=== PATIENT | male | born 1975 | race Caucasian/White ===

== ENCOUNTER 2019-07-15 10:36 | Inpatient (IN) ==
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
[2019-07-15] MEDS ORDERED: Isovue-370 500 ML BOTTLE IVP ONE (11:14)
[2019-07-15] MEDS ORDERED: *HR* HYDROmorphone (PF) 1 MG/ML SYRINGE IVP ONE ×3 (11:21→15:39)
[2019-07-15 12:07] LABS: Bilirubin,Urine Negative (Negative); Blood,Urine Trace (Negative); Clarity,Urine Turbid (Clear); Color,Urine Yellow (Yellow); Glucose,Urine (UA) Normal (Normal); Ketones,Urine Negative (Negative); Leukocyte Esterase,Urine Large (Negative); Nitrite,Urine Positive (Negative); Protein,Urine 30 mg/dL (Neg-Trace); Specific Gravity,Urine 1.018 (1.010-1.025); Urobilinogen,Urine Normal (Normal)
[2019-07-15 12:09] LABS: Bacteria,Urine Many per hpf (None-Few); Hyaline Casts,Urine None Seen per lpf (None-Few); Squamous Epithelial Cell,Urine Many per lpf (None-Few); WBC,Urine TNTC per hpf (0-3)
[2019-07-15 12:37] LABS: Basophils % 0.5 %; Eosinophils # 0.2 K/mcL (0.0-0.6); Hematocrit 39.8 % (37.5-50.1); Hemoglobin 12.2 g/dL (12.9-16.9); Immature Granulocytes % 0.3 % (0-4); Lymphocytes # 1.1 K/mcL (0.6-4.6); Lymphocytes % 14.7 %; Mean Corpuscular HGB Conc 30.7 g/dL (31.6-35.5); Mean Corpuscular Hemoglobin 28.4 pg (28.0-33.3); Mean Corpuscular Volume 92.8 fL (83.0-100.0); Mean Platelet Volume 9.1 fL (9.4-12.4); Monocytes # 0.3 K/mcL (0.0-1.3); Monocytes % 4.3 %; Platelet Count 272 K/mcL (140-400); Red Blood Count 4.29 M/mcL (4.19-5.50); Red Cell Distribution Width 17.2 % (11.5-14.5); Segmented Neutrophils % 78.2 %; White Blood Count 7.6 K/mcL (4.3-11.1)
[2019-07-15] MEDS ORDERED: 0.9 % Sodium Chloride 1,000 ML IVC ONE (12:39)
[2019-07-15] MEDS ORDERED: Piperacillin/Tazobactam 3.375 GM in 0.9 % Sodium Chloride Mini Bag 100 ML IVPB ONE (12:39)
[2019-07-15 12:56] LABS: Alanine Aminotransferase 11 Units/L (7-52); Albumin 3.4 g/dL (3.5-5.7); Albumin/Globulin Ratio 0.6 (1.1-2.2); Alkaline Phosphatase 102 Units/L (34-104); Aspartate Amino Transferase 11 Units/L (13-39); BUN/Creatinine Ratio 33 (6-26); Bilirubin,Total 0.4 mg/dL (0.3-1.0); Blood Urea Nitrogen 13 mg/dL (6-20); C-Reactive Protein 46 mg/L (Less than 10); Calcium 9.2 mg/dL (8.6-10.3); Carbon Dioxide 28 mEq/L (23-29); Chloride 101 mEq/L (98-107); Globulin 5.4 g/dL (2.4-3.5); Glucose 100 mg/dL (70-105); Osmolality,Calculated 282 (280-300); Sodium 136 mEq/L (136-145); Total Protein 8.8 g/dL (6.4-8.9); eGFR For African Americans > 60 (> 60); eGFR For Non-African Americans > 60 (> 60)
[2019-07-15] MEDS ORDERED: Naloxone 0.4 MG/ML INJ IVP PRN (16:04)
[2019-07-15] MEDS ORDERED: Ondansetron 4 MG/2 ML VIAL IVP PRN (16:04)
--- NOTE | 2019-07-15 16:26 | Emergency Department Note ---
Disposition Clinical Impression: Osteomyelitis Qualifiers: Osteomyelitis type: unspecified type Osteomyelitis location: other site Qualified Code(s): M86.9 - Osteomyelitis, unspecified Urinary tract infection Qualifiers: Urinary tract infection type: site unspecified Hematuria presence: without hematuria Qualified Code(s): N39.0 - Urinary tract infection, site not specified Disposition: Admitted As Inpatient Condition: Good Time of Disposition: 14:51 General Adult HPI - General Chief complaint: ED Extremity Injury, Lower Stated complaint: Rt Hip Pain Fall Friday Time Seen by Provider: 07/15/19 10:40 Source: patient, EMS Limitations: no limitations Nursing Notes Reviewed: Yes Vital Signs Reviewed: Yes - History of Present Illness Pain Scale: 9 - Related Data Home Medications Medication Instructions Recorded Confirmed ALPRAZolam [Xanax 0.5 MG Tablet] 0.5 mg PO BID 09/07/18 07/15/19 Ascorbate Calcium [Vitamin C] 500 mg PO DAILY 09/07/18 07/15/19 Baclofen [Lioresal] 20 mg PO TID 09/07/18 07/15/19 Budesonide Neb [Pulmicort Neb] 0.5 mg IH BIDR 09/07/18 07/15/19 Cetirizine HCl [24Hour Allergy] 10 mg PO DAILY 09/07/18 07/15/19 Dicyclomine Hcl [Bentyl] 20 mg PO TID 09/07/18 07/15/19 Ferrous Sulfate [Iron] 325 mg PO DAILY 09/07/18 07/15/19 Gabapentin [Neurontin] 600 mg PO TID 09/07/18 07/15/19 Ibuprofen [Motrin] 600 mg PO TID PRN 09/07/18 07/15/19 Ipratropium/Albuterol Neb [Duoneb] 3 ml IH Q4HR PRN 09/07/18 07/15/19 Lactobacillus Acidophilus 1 each PO BID 09/07/18 07/15/19 [Acidophilus] Lactulose 30 gm PO DAILY PRN 09/07/18 07/15/19 Linaclotide [Linzess] 145 mcg PO DAILY 09/07/18 07/15/19 Midodrine HCl 10 mg PO TID 09/07/18 07/15/19 Multivit,Th Iron,Other Min 1 each PO DAILY 09/07/18 07/15/19 [Thera-M] Omeprazole [PriLOSEC] 40 mg PO DAILY 09/07/18 07/15/19 OxyCODONE Immed Rel [Roxicodone 10 10 mg PO Q6H 09/07/18 07/15/19 MG] Oxybutynin Chloride [Ditropan Xl] 15 mg PO BID 09/07/18 07/15/19 Polyethylene Glycol 3350 [MiraLAX] 17 gm PO BID 09/07/18 07/15/19 Potassium Chloride [K-Tab ER] 20 meq PO DAILY 09/07/18 07/15/19 Sennosides [Senna] 2 tab PO DAILY 09/07/18 07/15/19 Simethicone [Gas-X] 80 mg PO QID PRN 09/07/18 07/15/19 Sucralfate [Carafate] 1 gm PO BID 09/07/18 07/15/19 Zinc Sulfate 220 mg PO DAILY 09/07/18 07/15/19 Methocarbamol [Robaxin] 500 mg PO Q8HR 04/14/19 07/15/19 OxyCODONE Immed Rel [Roxicodone 30 30 mg PO Q6H 04/14/19 07/15/19 MG] Allergies Allergy/AdvReac Type Severity Reaction Status Date / Time No Known Allergies Allergy Verified 07/15/19 11:02 Cardiovascular: Reports: chest pain Respiratory: Reports: dyspnea Integumentary: Reports: lesions (Decubital ulcers, right) Past Medical History - Past Medical History Medical history: Reports: atrial fibrillation, COPD, DVT, GERD, pulmonary embolus, other Surgical history: Reports: cholecystectomy, colostomy, tracheostomy, other (PEG tube, nephrostomy tube) Psychiatric history: Reports: anxiety, depression - Social History Smoking Status: Current every day smoker Smokeless Tobacco Status: No Alcohol use: Reports: none Drug use: Reports: none Physical Exam - General Limitations: no limitations General appearance: alert, in no apparent distress Course Vital Signs Temperature 98.8 F 07/15/19 10:58 Pulse Rate 91 07/15/19 10:58 Respiratory Rate 16 07/15/19 10:58 Blood Pressure 120/82 07/15/19 10:58 O2 Sat by Pulse Oximetry 97 07/15/19 10:58 Temperature 98.8 F 07/15/19 10:58 Pulse Rate 73 07/15/19 14:19 Respiratory Rate 18 07/15/19 14:19 Blood Pressure 122/75 07/15/19 14:19 O2 Sat by Pulse Oximetry 97 07/15/19 14:19 Oxygen Delivery Oxygen Delivery Nasal Cannula Medical Decision Making - Medical Records Medical records reviewed: Yes I reviewed the patient's medical records. - Lab Data Lab results reviewed: Yes I reviewed the patient's lab results. Result diagrams: 07/15/19 12:16 07/15/19 12:16 Lab Results 07/15/19 07/15/19 07/15/19 Range/Units 11:55 12:16 12:16 WBC 7.6 (4.3-11.1) K/mcL RBC 4.29 (4.19-5.50) M/mcL Hgb 12.2 L (12.9-16.9) g/dL Hct 39.8 (37.5-50.1) % MCV 92.8 (83.0-100.0) fL MCH 28.4 (28.0-33.3) pg MCHC 30.7 L (31.6-35.5) g/dL RDW 17.2 H (11.5-14.5) % Plt Count 272 (140-400) K/mcL MPV 9.1 L (9.4-12.4) fL Immature Gran % 0.3 (0-4) % Seg Neutrophils % 78.2 % Lymphocytes % 14.7 % Monocytes % 4.3 % Eosinophils % 2.0 % Basophils % 0.5 % Neutrophils # 6.0 (1.6-8.9) K/mcL Lymphocytes # 1.1 (0.6-4.6) K/mcL Monocytes # 0.3 (0.0-1.3) K/mcL Eosinophils # 0.2 (0.0-0.6) K/mcL Basophils # 0.0 (0.0-0.2) K/mcL ESR (0-10) mm/hr Sodium 136 (136-145) mEq/L Potassium 4.0 (3.5-5.1) mEq/L Chloride 101 (98-107) mEq/L Carbon Dioxide 28 (23-29) mEq/L BUN 13 (6-20) mg/dL Creatinine 0.40 L (0.70-1.30) mg/dL Est GFR ( Amer) > 60 (> 60) Est GFR (Non-Af Amer) > 60 (> 60) BUN/Creatinine Ratio 33 H (6-26) Glucose 100 (70-105) mg/dL Calculated Osmolality 282 (280-300) Lactic Acid (0.5-2.2) mmol/L Calcium 9.2 (8.6-10.3) mg/dL Total Bilirubin 0.4 (0.3-1.0) mg/dL AST 11 L (13-39) Units/L ALT 11 (7-52) Units/L Alkaline Phosphatase 102 (34-104) Units/L C-Reactive Protein 46 H (Less than 10) mg/L Serum Total Protein 8.8 (6.4-8.9) g/dL Albumin 3.4 L (3.5-5.7) g/dL Globulin 5.4 H (2.4-3.5) g/dL Albumin/Globulin Ratio 0.6 L (1.1-2.2) Urine Color Yellow (Yellow) Urine Clarity Turbid A (Clear) Urine pH 8.0 (5.0-8.0) pH Units Ur Specific [place] 1.018 (1.010-1.025) Urine Protein 30 H (Neg-Trace) mg/dL Urine Glucose (UA) Normal (Normal) mg/dL Urine Ketones Negative (Negative) mg/dL Urine Blood Trace H (Negative) Urine Nitrite Positive A (Negative) Urine Bilirubin Negative (Negative) Urine Urobilinogen Normal (Normal) mg/dL Ur Leukocyte Esterase Large H (Negative) Urine Microscopic RBC 5-15 H (0-3) per hpf Urine Microscopic WBC TNTC H (0-3) per hpf Ur Squamous Epith Cells Many H (None-Few) per lpf Urine Bacteria Many H (None-Few) per hpf Hyaline Casts None Seen (None-Few) per lpf Ur Culture Indicated? YES A (NO) 07/15/19 07/15/19 Range/Units 12:16 12:16 WBC (4.3-11.1) K/mcL RBC (4.19-5.50) M/mcL Hgb (12.9-16.9) g/dL Hct (37.5-50.1) % MCV (83.0-100.0) fL MCH (28.0-33.3) pg MCHC (31.6-35.5) g/dL RDW (11.5-14.5) % Plt Count (140-400) K/mcL MPV (9.4-12.4) fL Immature Gran % (0-4) % Seg Neutrophils % % Lymphocytes % % Monocytes % % Eosinophils % % Basophils % % Neutrophils # (1.6-8.9) K/mcL Lymphocytes # (0.6-4.6) K/mcL Monocytes # (0.0-1.3) K/mcL Eosinophils # (0.0-0.6) K/mcL Basophils # (0.0-0.2) K/mcL ESR 122 H (0-10) mm/hr Sodium (136-145) mEq/L Potassium (3.5-5.1) mEq/L Chloride (98-107) mEq/L Carbon Dioxide (23-29) mEq/L BUN (6-20) mg/dL Creatinine (0.70-1.30) mg/dL Est GFR ( Amer) (> 60) Est GFR (Non-Af Amer) (> 60) BUN/Creatinine Ratio (6-26) Glucose (70-105) mg/dL Calculated Osmolality (280-300) Lactic Acid 0.7 (0.5-2.2) mmol/L Calcium (8.6-10.3) mg/dL Total Bilirubin (0.3-1.0) mg/dL AST (13-39) Units/L ALT (7-52) Units/L Alkaline Phosphatase (34-104) Units/L C-Reactive Protein (Less than 10) mg/L Serum Total Protein (6.4-8.9) g/dL Albumin (3.5-5.7) g/dL Globulin (2.4-3.5) g/dL Albumin/Globulin Ratio (1.1-2.2) Urine Color (Yellow) Urine Clarity (Clear) Urine pH (5.0-8.0) pH Units Ur Specific [place] (1.010-1.025) Urine Protein (Neg-Trace) mg/dL Urine Glucose (UA) (Normal) mg/dL Urine Ketones (Negative) mg/dL Urine Blood (Negative) Urine Nitrite (Negative) Urine Bilirubin (Negative) Urine Urobilinogen (Normal) mg/dL Ur Leukocyte Esterase (Negative) Urine Microscopic RBC (0-3) per hpf Urine Microscopic WBC (0-3) per hpf Ur Squamous Epith Cells (None-Few) per lpf Urine Bacteria (None-Few) per hpf Hyaline Casts (None-Few) per lpf Ur Culture Indicated? (NO) - Radiology Data Radiology results reviewed: Yes I reviewed the patient's radiology results. Chest X-Ray 07/15/19 12:12 IMPRESSION: 1. No acute cardiopulmonary disease. 2. Stable tracheostomy. D/ / 07/15/2019 12:41:54 Tiny Urbina MD / john Interpreting Provider: Tiny Urbina MD Abdomen/Pelvis CT 07/15/19 13:28 IMPRESSION: Subtle erosive-like change involving the left posterior greater tuberosity with mild periosteal reaction with further thinning of the overlying soft tissues and an associated sinus tract, concerning for osteomyelitis. Further evaluation can be made with MRI. Mildly dilated loops of small bowel in the anterior abdomen with gradual transition to normal caliber bowel. This is favored to represent an ileus rather than a partial small bowel obstruction. The urinary bladder is decompressed by suprapubic catheter, however there is suggestion of circumferential bladder wall thickening. Correlate for cystitis. D/ / 07/15/2019 14:08:39 Jann Howe / john Interpreting Provider: Jann Howe - EKG Data EKG #1 EKG attestation: Yes I reviewed and interpreted this EKG. EKG results narrative: EKG showed sinus tachycardia with ventricular rate of 105. No significant ST segment elevation or depression. No significant change from prior EKG dated 10/27/2018. Critical Care Time Critical Care Time: Yes Total Critical Care Time: 35 Attestation: Critical care performed: Time is exclusive of separately billable procedures. Time includes: direct patient care, patient reassessment, coordination of patient care, interpretation of data (laboratory data, radiology data, and respiratory data), review of patient's medical records, medical consultation and documentation of patient care. Procedures included in critical care time: Procedures excluded from critical care time: Attestation Statement - Attestation Attestation: I, Cheng Estrella MD, personally evaluated this patient and discussed their management with the resident physician. I reviewed the resident's note and agree with the documented findings, medical decision making, and plan of care. I reviewed the residents documentation and agree with the residents assessment and plan of care. I have personally had face to face time with the patient. I personally supervised and was present for the macias/critical portions of the following procedures completed by the resident: EKG interpretation. 43-year-old male with history of quadriplegia and a tracheostomy from the [facility] presents complaining of some right hip pain. Patient states he fell out of bed in several days ago and has had continued pain in the right posterior hip area. He also complains of chest congestion and feels like he needs sectioned. Mild shortness of breath. He denies fever. On examination patient is a well-developed thin male in no acute distress. He is alert and cooperative. No cyanosis or diaphoresis. Breath sounds are clear and equal bilaterally. Heart regular with a mild tachycardia. Abdomen is soft and nontender with normal bowel sounds. Labs reviewed. Chest x-ray negative. CT of the abdomen and pelvis concerning for osteomyelitis of the pelvis. Labs reviewed. UTI present. Blood cultures obtained. IV antibiotics initiated. The hospitalist, Dr. Gamble, was consulted and accepted admission of the patient.
--- NOTE | 2019-07-15 17:15 | Internal Med History&Physical ---
Date of Encounter: 07/15/19 Time of Encounter: 17:00 Internal Medicine - H&P: HPI Chief complaint: Back pain Admitted From: Long-term Nursing Facility Plans for Post Hospital Care: [facility] History of present illness: 43-year-old male with history of quadriplegia and a tracheostomy, colostomy and suprapubic catheter [facility] to [facility] pain and left hip pain. Patient had a chronic decubitus ulcer that [facility] care [facility] takes care of it. As per the patient, his dressing was not changed for a few days and he had a full 2 days ago on his left side. Nursing staff noted discharge coming from his wound associated with worsening back pain. Patient denied fever, chills or night sweats. He has no chest pain, shortness of breath or palpitation. In the ED, patient was afebrile, hemodynamically stable. Blood work was unremarkable except for elevated ESR and CRP. UA was positive urine nitrate, leukocyte esterase, WBC counts, RBCs. Past Med Surg Social Fam HX - Past Medical History Medical history: atrial fibrillation, COPD, DVT, GERD, pulmonary embolus, other Additional medical history: quadriplegia. muscle weakness. fatty liver. dermatitis. constipation. MRSA Psychiatric history: anxiety, depression - Past Surgical History Surgical History: cholecystectomy, colostomy, tracheostomy, other (PEG tube, nephrostomy tube) Additional surgical history: peg tube. nephrostomy. suprpubic catheter. trach. wound debridement - Social History Smoking Status: Current every day smoker Smokeless Tobacco Status: No Alcohol use: none Drug use: none - Additional Family History Additional family history: Reviewed and noncontributory Internal Medicine - H&P: Meds ALPRAZolam [Xanax 0.5 MG Tablet] 0.5 mg PO BID 09/07/18 [History] Ascorbate Calcium [Vitamin C] 500 mg PO DAILY 09/07/18 [History] Baclofen [Lioresal] 20 mg PO TID 09/07/18 [History] Budesonide Neb [Pulmicort Neb] 0.5 mg IH BIDR 09/07/18 [History] Cetirizine HCl [24Hour Allergy] 10 mg PO DAILY 09/07/18 [History] Dicyclomine Hcl [Bentyl] 20 mg PO TID 09/07/18 [History] Ferrous Sulfate [Iron] 325 mg PO DAILY 09/07/18 [History] Ibuprofen [Motrin] 600 mg PO TID PRN 09/07/18 [History] Ipratropium/Albuterol Neb [Duoneb] 3 ml IH Q4HR PRN 09/07/18 [History] Lactobacillus Acidophilus [Acidophilus] 1 each PO BID 09/07/18 [History] Lactulose 30 gm PO DAILY PRN 09/07/18 [History] Midodrine HCl 10 mg PO TID 09/07/18 [History] Multivit,Th Iron,Other Min [Thera-M] 1 each PO DAILY 09/07/18 [History] Omeprazole [PriLOSEC] 40 mg PO DAILY 09/07/18 [History] OxyCODONE Immed Rel [Roxicodone 10 MG] 10 mg PO Q6H 09/07/18 [History] Polyethylene Glycol 3350 [MiraLAX] 17 gm PO BID 09/07/18 [History] Potassium Chloride [K-Tab ER] 20 meq PO DAILY 09/07/18 [History] Sucralfate [Carafate] 1 gm PO BID 09/07/18 [History] Zinc Sulfate 220 mg PO DAILY 09/07/18 [History] Methocarbamol [Robaxin] 500 mg PO Q8HR 04/14/19 [History] OxyCODONE Immed Rel [Roxicodone 30 MG] 30 mg PO Q6H 04/14/19 [History] Amino Acids/Protein Hydrolys [Pro-Stat Awc Liquid] 30 ml PO BID 07/15/19 [History] Dextran 70/Hypromellose [Natural Balance Tears Eye Drop] 1 drop BOTH EYES QID PRN 07/15/19 [History] Gabapentin [Neurontin] 1,200 mg PO TID 07/15/19 [History] Lactulose [Enulose] 20 g PO DAILY 07/15/19 [History] Linaclotide [Linzess] 290 mcg PO DAILY 07/15/19 [History] Magnesium Hydroxide [Milk of Magnesia] 30 ml PO DAILY 07/15/19 [History] Midodrine HCl 10 mg PO DAILY PRN 07/15/19 [History] Oxybutynin Chloride [Oxybutynin Chloride ER] 15 mg PO BID 07/15/19 [History] Oxycodone HCl 10 mg PO Q4H PRN 07/15/19 [History] Sennosides/Docusate Sodium [Senna Plus 8.6-50 mg Tablet] 2 each PO DAILY 07/15/19 [History] Solifenacin Succinate [Vesicare] 5 mg PO DAILY 07/15/19 [History] Allergy/AdvReac Type Severity Reaction Status Date / Time No Known Allergies Allergy Verified 07/15/19 11:02 All Systems PM: A 10-system review of systems was performed and is negative for pertinent find ings except as documented above in the HPI. - Constitutional Vitals: Temp Pulse Resp BP Pulse Ox 98.8 F 76 16 115/97 98 07/15/19 10:58 07/15/19 16:59 07/15/19 16:59 07/15/19 16:59 07/15/19 16:59 Exam: General: Patient is alert, oriented 3. Head: Atraumatic, normal inspection, normocephalic. Eye: EOMI, PERRLA, no scleral icterus noted. ENT: Mucous membranes moist. No odontogenic infection noted. Neck: Tracheal mask were no discharge Respiratory: No respiratory distress, rhonchi, or wheezes noted. Cardiovascular: Regular rate and regular rhythm, GI: Soft, nondistended, normal bowel sounds. Extremities:+malodorous ulcer w/ purulent drainage and cellulitis extending along gluteal cleft on right side, contracted upper extremity, quadriplegic with pulses in all 4 extremities. Neurological: Alert, oriented 3, Psychiatric: normal affect, normal mood. Skin: Dry, intact, warm. Normal color. No rashes. Internal Med - H&P Results - Labs CBC & Chem 7: 07/15/19 12:16 07/15/19 12:16 Labs: Short CBC 07/15/19 Range/Units 12:16 WBC 7.6 (4.3-11.1) K/mcL Hgb 12.2 L (12.9-16.9) g/dL Hct 39.8 (37.5-50.1) % Plt Count 272 (140-400) K/mcL Neutrophils # 6.0 (1.6-8.9) K/mcL BMP 07/15/19 12:16 Sodium 136 Potassium 4.0 Chloride 101 Carbon Dioxide 28 BUN 13 Creatinine 0.40 L Glucose 100 Calcium 9.2 Liver Function 07/15/19 Range/Units 12:16 Total Bilirubin 0.4 (0.3-1.0) mg/dL AST 11 L (13-39) Units/L ALT 11 (7-52) Units/L Alkaline Phosphatase 102 (34-104) Units/L Albumin 3.4 L (3.5-5.7) g/dL Urine 07/15/19 Range/Units 11:55 Urine Color Yellow (Yellow) Urine Clarity Turbid A (Clear) Urine pH 8.0 (5.0-8.0) pH Units Ur Specific [place] 1.018 (1.010-1.025) Urine Protein 30 H (Neg-Trace) mg/dL Urine Glucose (UA) Normal (Normal) mg/dL - EKG Data -: EKG Interpreted by Myself EKG shows normal: sinus rhythm - EKG Data Prior EKG available for review: yes When compared to previous EKG: there is no significant change - Impressions ITS Impressions Chest X-Ray 07/15/19 12:12 IMPRESSION: 1. No acute cardiopulmonary disease. 2. Stable tracheostomy. D/ / 07/15/2019 12:41:54 Tiny Urbina MD / john Interpreting Provider: Tiny Urbina MD Abdomen/Pelvis CT 07/15/19 13:28 IMPRESSION: Subtle erosive-like change involving the left posterior greater tuberosity with mild periosteal reaction with further thinning of the overlying soft tissues and an associated sinus tract, concerning for osteomyelitis. Further evaluation can be made with MRI. Mildly dilated loops of small bowel in the anterior abdomen with gradual transition to normal caliber bowel. This is favored to represent an ileus rather than a partial small bowel obstruction. The urinary bladder is decompressed by suprapubic catheter, however there is suggestion of circumferential bladder wall thickening. Correlate for cystitis. D/ / 07/15/2019 14:08:39 Jann Howe / john Interpreting Provider: Jann Howe - Assessment and Plan (1) Quadriplegia Current Visit: Yes Status: Chronic (2) DVT prophylaxis Current Visit: Yes Status: Acute (3) Suprapubic catheter Current Visit: Yes Status: Chronic (4) Osteomyelitis Current Visit: Yes Status: Acute Qualifiers: Osteomyelitis type: other acute Osteomyelitis location: other site Qualified Code(s): M86.18 - Other acute osteomyelitis, other site (5) Pressure ulcer Current Visit: Yes Status: Acute Qualifiers: Pressure injury location: sacral region Pressure injury stage: stage 4 Qualified Code(s): L89.154 - Pressure ulcer of sacral region, stage 4 - Summary of Assessment and Plan Summary of Assessment and Plan: 43-year-old male with history of whether plasia status post tracheostomy, colostomy, suprapubic catheter, decubitus ulcer who came into the hospital due to wound infection. Sacral OM: Evident on CT scan. MRI pending. He is afebrile, hemodynamically stable. Has no leukocytosis, lactic acid is 0.7. Received vancomycin and Zosyn in the ED. Blood cultures, wound cultures ordered. Placed consult for general surgery for possible debridement and bone biopsy. Consult ID. Previous wound cultures with MRDO. Will wait formal ID recommendation as the patient is not septic appearing. Pain management with scheduled and breakthrough pain. Bacteriuria: UA is positive for LE, UN and WBC. likely a contamination. UCx sent from the ED. Quadriplegia with upper extremity contracture: Continue home medication Chronic constipation: Continue home bowel regimen DVT prophylaxis: Subcutaneous heparin. - Time Spent With Patient Total time spent is greater than 50% in coordination of care (as documented) at patient's floor/unit and/or counseling patient:
[2019-07-15] MEDS ORDERED: Artificial Tears SOLN 15 ML BOTTLE BOTH EYES PRN (17:40)
[2019-07-15] MEDS ORDERED: Ipratropium/Albuterol Neb 3 ML IH PRN (17:40)
[2019-07-15] MEDS: *HR* OxyCODONE Immed Rel 15 MG TABLET PO SCH ×2 (17:45→21:57)
[2019-07-15] MEDS: *HR* Heparin 5,000 UNIT/ML VIAL SQ SCH (17:45)
[2019-07-15] MEDS: 0.9 % Sodium Chloride 1,000 ML IVC SCH (17:46)
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
[2019-07-15] MEDS: Gabapentin 300 MG CAPSULE PO SCH (20:07)
[2019-07-15] MEDS: Sucralfate 1 GM TABLET PO SCH (20:08)
[2019-07-15] MEDS: Baclofen 10 MG TABLET PO SCH (20:08)
[2019-07-15] MEDS: ALPRAZolam 0.5 MG TABLET PO SCH (20:08)
[2019-07-15] MEDS: Budesonide Neb 0.5 MG/2 ML IH SCH (22:02)
[2019-07-16] MEDS: Methocarbamol 500 MG TABLET PO PRN (01:22)
[2019-07-16 04:06] LABS: Basophils % 0.5 %; Eosinophils # 0.1 K/mcL (0.0-0.6); Eosinophils % 1.6 %; Hematocrit 32.5 % (37.5-50.1); Immature Granulocytes % 0.2 % (0-4); Lymphocytes # 1.7 K/mcL (0.6-4.6); Lymphocytes % 29.9 %; Mean Corpuscular HGB Conc 30.8 g/dL (31.6-35.5); Mean Platelet Volume 8.7 fL (9.4-12.4); Monocytes # 0.4 K/mcL (0.0-1.3); Monocytes % 7.1 %; Neutrophils # 3.4 K/mcL (1.6-8.9); Platelet Count 231 K/mcL (140-400); Red Blood Count 3.57 M/mcL (4.19-5.50); Red Cell Distribution Width 16.9 % (11.5-14.5); Segmented Neutrophils % 60.7 %; White Blood Count 5.7 K/mcL (4.3-11.1)
[2019-07-16 04:24] LABS: BUN/Creatinine Ratio 34 (6-26); Blood Urea Nitrogen 10 mg/dL (6-20); Calcium 8.3 mg/dL (8.6-10.3); Carbon Dioxide 25 mEq/L (23-29); Chloride 105 mEq/L (98-107); Glucose 80 mg/dL (70-105); Osmolality,Calculated 280 (280-300); Potassium 3.5 mEq/L (3.5-5.1); Sodium 136 mEq/L (136-145); eGFR For African Americans > 60 (> 60); eGFR For Non-African Americans > 60 (> 60)
[2019-07-16] MEDS: 0.9 % Sodium Chloride 1,000 ML IVC SCH (04:31)
[2019-07-16] MEDS: *HR* OxyCODONE Immed Rel 15 MG TABLET PO SCH ×2 (04:31→10:40)
[2019-07-16] MEDS: *HR* Heparin 5,000 UNIT/ML VIAL SQ SCH ×2 (04:31→16:54)
[2019-07-16] MEDS ORDERED: Ibuprofen 800 MG TABLET PO ONE (04:53)
--- NOTE | 2019-07-16 06:07 | Electrocardiograph Report ---
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
[2019-07-16] MEDS: Sucralfate 1 GM TABLET PO SCH ×2 (08:30→16:55)
[2019-07-16] MEDS: Lactulose Oral Soln 20 GM/30 ML UDC PO SCH ×2 (09:17→09:28)
[2019-07-16] MEDS: Lactobacillus 1 EACH CAP.SPRINK PO SCH (09:17)
[2019-07-16] MEDS: Loratadine 10 MG TABLET PO SCH (09:17)
[2019-07-16] MEDS: MOM Conc 10 ML UD.LIQ PO SCH ×2 (09:18→09:27)
[2019-07-16] MEDS: Baclofen 10 MG TABLET PO SCH ×3 (09:18→21:56)
[2019-07-16] MEDS: Gabapentin 300 MG CAPSULE PO SCH ×3 (09:19→21:56)
[2019-07-16] MEDS: Sennosides/Docusate Sodium TABLET PO SCH (09:19)
[2019-07-16] MEDS: ALPRAZolam 0.5 MG TABLET PO SCH ×3 (09:20→21:56)
[2019-07-16] MEDS: Zinc Sulfate 220 MG CAPSULE PO SCH (09:20)
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
[2019-07-16] MEDS: Budesonide Neb 0.5 MG/2 ML IH SCH ×2 (10:29→19:58)
[2019-07-16] MEDS ORDERED: *HR* OxyCODONE Immed Rel 5 MG TABLET PO SCH (10:36)
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
[2019-07-16] MEDS: *HR* OxyCODONE Immed Rel 5 MG TABLET PO PRN ×2 (12:25→22:24)
--- NOTE | 2019-07-16 13:39 | Internal Med Progress Note ---
Hospitalist Progress Note - Encounter Date of Encounter: 07/16/19 Time of Encounter: 09:30 - Subjective Interval History: Patient was seen this morning, he had an uneventful night. He Is complaining about lower extremity pain and tingling. He denied chest pain, shortness of breath or palpitation. - Exam Vitals: Temp Pulse Resp BP Pulse Ox 97.6 F 66 17 101/63 97 07/16/19 11:47 07/16/19 11:47 07/16/19 11:47 07/16/19 11:47 07/16/19 11:47 Exam: General: Patient is alert, oriented 3. Head: Atraumatic, normal inspection, normocephalic. Eye: EOMI, PERRLA, no scleral icterus noted. ENT: Mucous membranes moist. Neck: Tracheal mask with no discharge Respiratory: No respiratory distress, rhonchi, or wheezes noted. Cardiovascular: Regular rate and regular rhythm, GI: Soft, nondistended, normal bowel sounds. Extremities: Left buttock decubitus ulcer with bone exposure, malodorus. Decubitus ulcers X2 measures around 5*7 cm each with no discharge Neurological: Alert, oriented 3, Psychiatric: normal affect, normal mood. Skin: Dry, intact, warm. Normal color. No rashes. - Assessment and Plan (1) Quadriplegia Current Visit: Yes Status: Chronic (2) DVT prophylaxis Current Visit: Yes Status: Acute (3) Suprapubic catheter Current Visit: Yes Status: Chronic (4) Osteomyelitis Current Visit: Yes Status: Acute (5) Pressure ulcer Current Visit: Yes Status: Acute (6) Severe protein-calorie malnutrition Current Visit: Yes Status: Chronic - Summary of Assessment and Plan Summary of Assessment and Plan: 43-year-old male with history of whether plasia status post tracheostomy, colostomy, suprapubic catheter, decubitus ulcer who came into the hospital due to wound infection. OM: Evident on CT scan at LEFT posterior tuberosity. MRI pending. He is afebrile, hemodynamically stable. Has no leukocytosis, lactic acid is 0.7. Received vancomycin and Zosyn in the ED. Blood cultures, wound cultures pending Spoke to general surgery today and they will proceed with I&D, patient is malnourished and as per Dr. Barraza, patient won't benefit from plastic surgery and flap until his nutrition improves. Consult ID. Previous wound cultures with MRDO. ABx as per ID. Pain management with scheduled and breakthrough pain. Severe protein-calorie malnutrition: consult placed to dietitian, low prealbumin level Bacteriuria: UA is positive for LE, UN and WBC. likely a contamination. UCx sent from the ED. Quadriplegia with upper extremity contracture: Continue home medication Chronic constipation: Continue home bowel regimen DVT prophylaxis: Subcutaneous heparin. - Time Spent with Patient Total time spent is greater than 50% in coordination of care (as documented) at patient's floor/unit and/or counseling patient: Plan of Care Discussed with: patient Internal Medicine: Result - Labs CBC & Chem 7: 07/16/19 03:45 07/16/19 03:45 Labs: Short CBC 07/16/19 Range/Units 03:45 WBC 5.7 (4.3-11.1) K/mcL Hgb 10.0 L D (12.9-16.9) g/dL Hct 32.5 L (37.5-50.1) % Plt Count 231 (140-400) K/mcL Neutrophils # 3.4 (1.6-8.9) K/mcL BMP 07/16/19 03:45 Sodium 136 Potassium 3.5 Chloride 105 Carbon Dioxide 25 BUN 10 Creatinine 0.29 L Glucose 80 Calcium 8.3 L - Impressions Impressions Chest X-Ray 07/15/19 12:12 IMPRESSION: 1. No acute cardiopulmonary disease. 2. Stable tracheostomy. D/ /15/2019 12:41:54 Tiny Urbina MD / john Interpreting Provider: Tiny Urbina MD Abdomen/Pelvis CT 07/15/19 13:28 IMPRESSION: Subtle erosive-like change involving the left posterior greater tuberosity with mild periosteal reaction with further thinning of the overlying soft tissues and an associated sinus tract, concerning for osteomyelitis. Further evaluation can be made with MRI. Mildly dilated loops of small bowel in the anterior abdomen with gradual transition to normal caliber bowel. This is favored to represent an ileus rather than a partial small bowel obstruction. The urinary bladder is decompressed by suprapubic catheter, however there is suggestion of circumferential bladder wall thickening. Correlate for cystitis. D/ / 07/15/2019 14:08:39 Jann Howe / john Interpreting Provider: Jann Howe Consult Discharge Plan - Plan Referrals: NONE,PCP [Primary Care Provider] - (4) Osteomyelitis Qualifiers: Osteomyelitis type: other acute Osteomyelitis location: other site Qualified Code(s): M86.18 - Other acute osteomyelitis, other site (5) Pressure ulcer Qualifiers: Pressure injury location: sacral region Pressure injury stage: stage 4 Qualified Code(s): L89.154 - Pressure ulcer of sacral region, stage 4
[2019-07-16] MEDS ORDERED: Lidocaine -MPF 1% 5 ML AMPUL INFILT ONE (14:37)
--- NOTE | 2019-07-16 14:47 | Acute Care Surgery Event Note ---
Date of Encounter: 07/16/19
--- NOTE | 2019-07-16 14:52 | Acute Care Surg Procedure Note ---
Date of procedure: 07/16/19 Pre-op diagnosis: Decubitus ulcers, osteomyelitis Post-op diagnosis: same Procedure: Sharp debridement right lateral hip. Recommendations, risks, and benefits are reviewed with patient at bedside and he is agreeable to proceed. A [verbal] signed consent is completed. 1420 Timeout was completed with patient and instructor of nursing present. Right patient, location, and procedure confirmed. The right lateral hip is with unmistakable pressure ulcer measuring for approximately 4 cm length by 3 cm with and an oval shape with concentration of eschar in the center. Foul-smelling odor is noted. There is no drainage. #15 blade scalpel was used for Sharp debridement of Right lateral decubitus ulcer. A very small amount of eschar (aprox 0.5 cm diameter) was debrided. There was approximately 1 ml of blood loss. Unfortunately the eschar is too fibrous at thi s time. The procedure concluded. Patient denied any pain or discomfort throughout procedure. Complications: None Findings: eschar Anesthesia: other (po pain medication) Surgeon: Zully Najera (No surgeon present; completed per SHANK RANDER-[employer]) Pathology: none sent
[2019-07-16] MEDS: Gentamicin Oint 15 GM TUBE TP SCH (16:53)
[2019-07-16] MEDS ORDERED: Piperacillin/Tazobactam 3.375 GM in 0.9 % Sodium Chloride Mini Bag 100 ML IVPB SCH (20:00)
[2019-07-17 05:57] LABS: Basophils % 0.6 %; Eosinophils # 0.3 K/mcL (0.0-0.6); Eosinophils % 6.3 %; Hematocrit 33.5 % (37.5-50.1); Hemoglobin 10.2 g/dL (12.9-16.9); Immature Granulocytes % 0.2 % (0-4); Lymphocytes # 1.2 K/mcL (0.6-4.6); Lymphocytes % 22.1 %; Mean Corpuscular HGB Conc 30.4 g/dL (31.6-35.5); Mean Corpuscular Hemoglobin 28.8 pg (28.0-33.3); Mean Corpuscular Volume 94.6 fL (83.0-100.0); Mean Platelet Volume 9.3 fL (9.4-12.4); Monocytes # 0.3 K/mcL (0.0-1.3); Monocytes % 6.5 %; Neutrophils # 3.3 K/mcL (1.6-8.9); Platelet Count 228 K/mcL (140-400); Red Blood Count 3.54 M/mcL (4.19-5.50); Red Cell Distribution Width 16.7 % (11.5-14.5); Segmented Neutrophils % 64.3 %; White Blood Count 5.2 K/mcL (4.3-11.1)
[2019-07-17] MEDS: *HR* Heparin 5,000 UNIT/ML VIAL SQ SCH ×2 (06:04→16:58)
[2019-07-17 06:12] LABS: Magnesium 1.8 mg/dL (1.6-2.6)
[2019-07-17 06:24] LABS: Thyroid Stimulating Hormone 1.616 mcIU/mL (0.340-5.600)
[2019-07-17 06:35] LABS: Folate 9.6 ng/mL (3.0-16.0)
[2019-07-17] MEDS: Gabapentin 300 MG CAPSULE PO SCH ×3 (09:02→22:03)
[2019-07-17] MEDS: Zinc Sulfate 220 MG CAPSULE PO SCH (09:02)
[2019-07-17] MEDS: Baclofen 10 MG TABLET PO SCH ×3 (09:02→22:04)
[2019-07-17] MEDS: Loratadine 10 MG TABLET PO SCH (09:02)
[2019-07-17] MEDS: Lactobacillus 1 EACH CAP.SPRINK PO SCH (09:02)
[2019-07-17] MEDS: ALPRAZolam 0.5 MG TABLET PO SCH ×3 (09:02→22:03)
[2019-07-17] MEDS: MOM Conc 10 ML UD.LIQ PO SCH (09:03)
[2019-07-17] MEDS: Sucralfate 1 GM TABLET PO SCH ×2 (09:03→16:57)
[2019-07-17] MEDS: Sennosides/Docusate Sodium TABLET PO SCH (09:03)
[2019-07-17] MEDS: Lactulose Oral Soln 20 GM/30 ML UDC PO SCH (09:07)
[2019-07-17] MEDS: Budesonide Neb 0.5 MG/2 ML IH SCH ×2 (09:55→19:36)
[2019-07-17] MEDS: *HR* OxyCODONE Immed Rel 5 MG TABLET PO PRN (10:25)
--- NOTE | 2019-07-17 11:50 | Internal Med Progress Note ---
Hospitalist Progress Note - Encounter Date of Encounter: 07/17/19 Time of Encounter: 08:30 - Subjective Interval History: No major events overnight. Patient was seen this a.m. He denied fever, chills or night sweats. He has no nausea, vomiting or abdominal pain. Patient denied chest pain, shortness of breath or palpitation. - Exam Vitals: Temp Pulse Resp BP Pulse Ox 97.9 F 80 16 96/51 100 07/17/19 07:53 07/17/19 07:53 07/17/19 09:58 07/17/19 07:53 07/17/19 09:58 Exam: General: Patient is alert, oriented 3. Head: Atraumatic, normal inspection, normocephalic. Eye: EOMI, PERRLA, no scleral icterus noted. ENT: Mucous membranes moist. Neck: Tracheal mask with no discharge Respiratory: No respiratory distress, rhonchi, or wheezes noted. Cardiovascular: Regular rate and regular rhythm, GI: Soft, nondistended, normal bowel sounds. Extremities: Left buttock decubitus ulcer with bone exposure, malodorus. Decubitus ulcers X2 measures around 5*7 cm each with no discharge Neurological: Alert, oriented 3, Psychiatric: normal affect, normal mood. Skin: Dry, intact, warm. Normal color. No rashes. - Assessment and Plan (1) Quadriplegia Current Visit: Yes Status: Chronic (2) DVT prophylaxis Current Visit: Yes Status: Acute (3) Suprapubic catheter Current Visit: Yes Status: Chronic (4) Osteomyelitis Current Visit: Yes Status: Acute (5) Pressure ulcer Current Visit: Yes Status: Acute (6) Severe protein-calorie malnutrition Current Visit: Yes Status: Chronic - Summary of Assessment and Plan Summary of Assessment and Plan: 43-year-old male with history of whether plasia status post tracheostomy, colostomy, suprapubic catheter, decubitus ulcer who came into the hospital due to wound infection. Acute OM of the left proximal femur/greater trochanter: He is afebrile, hemodynamically stable. Has no leukocytosis. Blood cultures pending, wound cultures growing GPC and GNR. Had bedside I&D by surgery, patient is malnourished and as per Dr. Barraza, patient won't benefit from plastic surgery and flap until his nutrition improves. Consult ID, started on Vanc/Cefepime/Colistin. Previous wound cultures with MRDO. ABx as per ID. Pain management with scheduled and breakthrough pain. Severe protein-calorie malnutrition: consult placed to dietitian, low prealbumin level Bacteriuria: UA is positive for LE, UN and WBC. likely a contamination. UCx sent from the ED. Quadriplegia with upper extremity contracture: Continue home medication Chronic constipation: Continue home bowel regimen DVT prophylaxis: Subcutaneous heparin. Disposition: Inpatient, will benefit from LTAC referral for above comorbdities. I reviewed independently all laboratory workup, pertinent images including x- rays and CT scans. I also reviewed independently and EKGs and my findings are in the body of my assessment and plan. I ordered the laboratory workup and images myself. I discussed finding with patient's, their families, RN's and consultants involved in the care of the patient. - Time Spent with Patient Total time spent is greater than 50% in coordination of care (as documented) at patient's floor/unit and/or counseling patient: Greater than 35 minutes Plan of Care Discussed with: patient Internal Medicine: Result - Labs CBC & Chem 7: 07/17/19 05:07 07/16/19 03:45 Labs: Short CBC 07/17/19 Range/Units 05:07 WBC 5.2 (4.3-11.1) K/mcL Hgb 10.2 L (12.9-16.9) g/dL Hct 33.5 L (37.5-50.1) % Plt Count 228 (140-400) K/mcL Neutrophils # 3.3 (1.6-8.9) K/mcL - Impressions Impressions Lumbar Spine MRI 07/16/19 19:58 IMPRESSION: No MRI evidence of acute osteomyelitis. D/ / Juan Valero MD / Juan Valero MD Interpreting Provider: Juan Valero MD Sacrum/Coccyx MRI 07/16/19 19:58 IMPRESSION: No MRI evidence of acute osteomyelitis. D/ / Juan Valero MD / Juan Valero MD Interpreting Provider: Juan Valero MD Pelvis MRI 07/17/19 11:17 IMPRESSION: Acute osteomyelitis of the left proximal femur/greater trochanter. Bone marrow edema with probable T1 bone marrow replacement at the bilateral posterior acetabula, deep to decubitus ulcers, suspicious for acute osteomyelitis or reactive marrow edema. D/ / 07/17/2019 11:40:04 Jann Howe / shyanne Interpreting Provider: Jann Howe Consult Discharge Plan - Plan Referrals: NONE,PCP [Primary Care Provider] - (4) Osteomyelitis Qualifiers: Osteomyelitis type: other acute Osteomyelitis location: femur Laterality: left Qualified Code(s): M86.152 - Other acute osteomyelitis, left femur (5) Pressure ulcer Qualifiers: Pressure injury location: sacral region Pressure injury stage: stage 4 Qualified Code(s): L89.154 - Pressure ulcer of sacral region, stage 4
[2019-07-17] MEDS ORDERED: Colistin (Colistimethate) 300 MG in 0.9 % Sodium Chloride 50 ML IVPB ONE (13:00)
[2019-07-17] MEDS: Gentamicin Oint 15 GM TUBE TP SCH (14:49)
[2019-07-17] MEDS: Cefepime HCl 2,000 MG in 0.9 % Sodium Chloride Mini Bag 100 ML IVPB SCH (16:58)
[2019-07-17] MEDS: Nicotine 21 MG PATCH.TD24 TD SCH (17:56)
[2019-07-17] MEDS: Methocarbamol 500 MG TABLET PO PRN (23:56)
[2019-07-18] MEDS: Colistin (Colistimethate) 150 MG in 0.9 % Sodium Chloride 50 ML IVPB SCH ×2 (02:31→11:31)
[2019-07-18] MEDS: Cefepime HCl 2,000 MG in 0.9 % Sodium Chloride Mini Bag 100 ML IVPB SCH ×2 (05:12→15:33)
[2019-07-18] MEDS: *HR* Heparin 5,000 UNIT/ML VIAL SQ SCH ×2 (05:16→17:09)
[2019-07-18] MEDS: Budesonide Neb 0.5 MG/2 ML IH SCH ×2 (07:26→22:58)
[2019-07-18 07:56] LABS: Hematocrit 32.3 % (37.5-50.1); Hemoglobin 9.8 g/dL (12.9-16.9); Mean Corpuscular HGB Conc 30.3 g/dL (31.6-35.5); Mean Corpuscular Hemoglobin 28.7 pg (28.0-33.3); Mean Corpuscular Volume 94.4 fL (83.0-100.0); Mean Platelet Volume 9.2 fL (9.4-12.4); Platelet Count 225 K/mcL (140-400); Red Blood Count 3.42 M/mcL (4.19-5.50); Red Cell Distribution Width 16.8 % (11.5-14.5); White Blood Count 5.4 K/mcL (4.3-11.1)
[2019-07-18 08:08] LABS: BUN/Creatinine Ratio 49 (6-26); Blood Urea Nitrogen 23 mg/dL (6-20); Calcium 9.2 mg/dL (8.6-10.3); Carbon Dioxide 34 mEq/L (23-29); Chloride 103 mEq/L (98-107); Glucose 100 mg/dL (70-105); Osmolality,Calculated 292 (280-300); Potassium 3.8 mEq/L (3.5-5.1); Sodium 139 mEq/L (136-145); eGFR For African Americans > 60 (> 60); eGFR For Non-African Americans > 60 (> 60)
[2019-07-18] MEDS ORDERED: 0.9 % Sodium Chloride 250 ML IVC ONE (08:49)
[2019-07-18] MEDS ORDERED: Nicotine 21 MG PATCH.TD24 TD SCH (09:00)
[2019-07-18] MEDS ORDERED: 0.9 % Sodium Chloride 250 ML ONE (09:17)
[2019-07-18] MEDS: Lactobacillus 1 EACH CAP.SPRINK PO SCH (09:21)
[2019-07-18] MEDS: Gabapentin 300 MG CAPSULE PO SCH ×3 (09:21→21:45)
[2019-07-18] MEDS: Sennosides/Docusate Sodium TABLET PO SCH (09:21)
[2019-07-18] MEDS: Sucralfate 1 GM TABLET PO SCH ×2 (09:21→15:33)
[2019-07-18] MEDS: Baclofen 10 MG TABLET PO SCH ×3 (09:21→21:46)
[2019-07-18] MEDS: Lactulose Oral Soln 20 GM/30 ML UDC PO SCH (09:22)
[2019-07-18] MEDS: ALPRAZolam 0.5 MG TABLET PO SCH ×3 (09:22→21:46)
[2019-07-18] MEDS: Zinc Sulfate 220 MG CAPSULE PO SCH (09:22)
[2019-07-18] MEDS: Loratadine 10 MG TABLET PO SCH (09:22)
[2019-07-18] MEDS: Nicotine 21 MG PATCH.TD24 TD SCH (09:22)
[2019-07-18] MEDS: MOM Conc 10 ML UD.LIQ PO SCH (09:22)
--- NOTE | 2019-07-18 09:44 | AcuteCareSurgery Progress Note ---
Date of Encounter: 07/18/19 Time of Encounter: 09:43 - Assessment and Plan (1) Pressure ulcer Current Visit: Yes Status: Acute I am pleased with the bedside dressing changes. Continue with antibiotics. I will contact my colleague Dr. Barlow and ask him to look at the wounds for eventual evaluation through the wound care center. Qualifiers: Pressure injury location: sacral region Pressure injury stage: stage 4 Qualified Code(s): L89.154 - Pressure ulcer of sacral region, stage 4 Subjective Patient reports: other (Patient doing well. Denies any feelings of dizziness) Objective Vital Signs - Last 8 Hours Temp Pulse Resp BP Pulse Ox 07/18/19 07:45 83/53 07/18/19 07:30 97.5 F L 49 18 71/43 100 07/18/19 07:28 18 98 Intake and Output 07/17/19 07/18/19 07/18/19 23:59 07:59 15:59 Intake Total 590 / 1307 Output Total 900 / 2200 750 / 750 Balance -310 / -893 -750 / -750 Intake: IV Fluids 350 / 350 Maxipime 2,000 MG In 0.9 % 100 / 100 Sodium Chloride (Mini-Bag +) 100 ML @ 200 mls/hr IVPB Q12H [facility] Rx#:[id number] Vancocin 1,000 MG In 0.9 % 250 / 250 Sodium Chloride 250 ML @ 166. 667 mls/hr IVPB Q12H [facility]IV[facility] Rx#: [id number] Oral 240 / 957 Output: Catheter 900 / 2200 750 / 750 Other: Meal Dinner Percent of Meal Consumed 100% - Additional Exam Sacral and hip decubitus wounds covered appropriately with Dakin solution dressing. - Labs 07/19/19 01:14 07/19/19 01:14 Diabetes panel 07/18/19 Range/Units 07:35 Sodium 139 (136-145) mEq/L Potassium 3.8 (3.5-5.1) mEq/L Chloride 103 (98-107) mEq/L Carbon Dioxide 34 H (23-29) mEq/L BUN 23 H (6-20) mg/dL Creatinine 0.47 L (0.70-1.30) mg/dL Glucose 100 (70-105) mg/dL Calcium 9.2 (8.6-10.3) mg/dL Calcium panel 07/18/19 Range/Units 07:35 Calcium 9.2 (8.6-10.3) mg/dL Pituitary panel 07/18/19 Range/Units 07:35 Sodium 139 (136-145) mEq/L Potassium 3.8 (3.5-5.1) mEq/L Chloride 103 (98-107) mEq/L Carbon Dioxide 34 H (23-29) mEq/L BUN 23 H (6-20) mg/dL Creatinine 0.47 L (0.70-1.30) mg/dL Glucose 100 (70-105) mg/dL Calcium 9.2 (8.6-10.3) mg/dL Adrenal panel 07/18/19 Range/Units 07:35 Sodium 139 (136-145) mEq/L Potassium 3.8 (3.5-5.1) mEq/L Chloride 103 (98-107) mEq/L Carbon Dioxide 34 H (23-29) mEq/L BUN 23 H (6-20) mg/dL Creatinine 0.47 L (0.70-1.30) mg/dL Glucose 100 (70-105) mg/dL Calcium 9.2 (8.6-10.3) mg/dL Consult Discharge Plan - Plan Referrals: NONE,PCP [Non-Partnered Physician] -
--- NOTE | 2019-07-18 10:19 | Internal Med Progress Note ---
Hospitalist Progress Note - Encounter Date of Encounter: 07/18/19 Time of Encounter: 09:25 - Subjective Interval History: No major events overnight. Patient was seen this a.m. He denied fever, chills or night sweats. He has no nausea, vomiting or abdominal pain. Patient denied chest pain, shortness of breath or palpitation. - Exam Vitals: Temp Pulse Resp BP Pulse Ox 97.5 F L 49 18 83/53 100 07/18/19 07:30 07/18/19 07:30 07/18/19 07:30 07/18/19 07:45 07/18/19 07:30 Exam: General: Patient is alert, oriented 3. Head: Atraumatic, normal inspection, normocephalic. Eye: EOMI, PERRLA, no scleral icterus noted. ENT: Mucous membranes moist. Neck: Tracheal mask with no discharge Respiratory: No respiratory distress, rhonchi, or wheezes noted, suprapubic cathater. Cardiovascular: Regular rate and regular rhythm, GI: Soft, nondistended, normal bowel sounds. Extremities: Wound dressing in the back and left hip. Neurological: Alert, oriented 3, Psychiatric: normal affect, normal mood. Skin: Dry, intact, warm. Normal color. No rashes. - Assessment and Plan (1) Quadriplegia Current Visit: Yes Status: Chronic (2) DVT prophylaxis Current Visit: Yes Status: Acute (3) Suprapubic catheter Current Visit: Yes Status: Chronic (4) Osteomyelitis Current Visit: Yes Status: Acute (5) Pressure ulcer Current Visit: Yes Status: Acute (6) Severe protein-calorie malnutrition Current Visit: Yes Status: Chronic - Summary of Assessment and Plan Summary of Assessment and Plan: 43-year-old male with history of whether plasia status post tracheostomy, colostomy, suprapubic catheter, decubitus ulcer who came into the hospital due to wound infection. Acute OM of the left proximal femur/greater trochanter: He is afebrile, hemodynamically stable. Has no leukocytosis. Blood cultures pending, wound cu ltures growing GPC and GNR. Had bedside I&D by surgery, patient is malnourished and as per Dr. Barraza, patient won't benefit from plastic surgery and flap until his nutrition improves. Consult ID, on Vanc/Cefepime/Colistin day2 . Previous wound cultures with MRDO. ABx as per ID. Pain management with scheduled and breakthrough pain. Severe protein-calorie malnutrition: consult placed to dietitian, low prealbumin level Bacteriuria: UA is positive for LE, UN and WBC. likely a contamination. UCx sent from the ED. Quadriplegia with upper extremity contracture: Continue home medication Chronic constipation: Continue home bowel regimen Tobacco abuse: consulted to quit smoking, On nicotine patch. DVT prophylaxis: Subcutaneous heparin. Disposition: Inpatient, will benefit from LTAC referral for above comorbdities. - Time Spent with Patient Total time spent is greater than 50% in coordination of care (as documented) at patient's floor/unit and/or counseling patient: Plan of Care Discussed with: patient Internal Medicine: Result - Labs CBC & Chem 7: 07/18/19 07:35 07/18/19 07:35 Labs: Short CBC 07/18/19 Range/Units 07:35 WBC 5.4 (4.3-11.1) K/mcL Hgb 9.8 L (12.9-16.9) g/dL Hct 32.3 L (37.5-50.1) % Plt Count 225 (140-400) K/mcL BMP 07/18/19 07:35 Sodium 139 Potassium 3.8 Chloride 103 Carbon Dioxide 34 H BUN 23 H Creatinine 0.47 L Glucose 100 Calcium 9.2 - Impressions Impressions Pelvis MRI 07/17/19 11:17 IMPRESSION: Acute osteomyelitis of the left proximal femur/greater trochanter. Bone marrow edema with probable T1 bone marrow replacement at the bilateral posterior acetabula, deep to decubitus ulcers, suspicious for acute osteomyelitis or reactive marrow edema. D/ / 07/17/2019 11:40:04 Jann Howe / micahrter Interpreting Provider: Jann Howe Consult Discharge Plan - Plan Referrals: NONE,PCP [Non-Partnered Physician] - (4) Osteomyelitis Qualifiers: Osteomyelitis type: other acute Osteomyelitis location: femur Laterality: left Qualified Code(s): M86.152 - Other acute osteomyelitis, left femur (5) Pressure ulcer Qualifiers: Pressure injury location: sacral region Pressure injury stage: stage 4 Qualified Code(s): L89.154 - Pressure ulcer of sacral region, stage 4
[2019-07-18] MEDS: Gentamicin Oint 15 GM TUBE TP SCH (10:52)
[2019-07-18] MEDS: 0.9 % Sodium Chloride 1,000 ML IVC SCH ×2 (11:31→21:48)
[2019-07-18] MEDS ORDERED: Trolamine Salicylate/Aloe Vera 35.4 GM TUBE TP PRN (17:15)
[2019-07-18] MEDS: Methocarbamol 500 MG TABLET PO PRN (23:02)
[2019-07-19] MEDS: Colistin (Colistimethate) 150 MG in 0.9 % Sodium Chloride 50 ML IVPB SCH ×2 (00:53→15:01)
[2019-07-19 01:30] LABS: Hematocrit 34.7 % (37.5-50.1); Hemoglobin 10.2 g/dL (12.9-16.9); Mean Corpuscular HGB Conc 29.4 g/dL (31.6-35.5); Mean Corpuscular Hemoglobin 27.9 pg (28.0-33.3); Mean Corpuscular Volume 95.1 fL (83.0-100.0); Mean Platelet Volume 8.9 fL (9.4-12.4); Platelet Count 206 K/mcL (140-400); Red Blood Count 3.65 M/mcL (4.19-5.50); Red Cell Distribution Width 16.4 % (11.5-14.5); White Blood Count 4.8 K/mcL (4.3-11.1)
[2019-07-19 01:52] LABS: BUN/Creatinine Ratio 39 (6-26); Blood Urea Nitrogen 22 mg/dL (6-20); Calcium 8.7 mg/dL (8.6-10.3); Carbon Dioxide 29 mEq/L (23-29); Chloride 102 mEq/L (98-107); Glucose 90 mg/dL (70-105); Osmolality,Calculated 289 (280-300); Potassium 4.3 mEq/L (3.5-5.1); Sodium 138 mEq/L (136-145); eGFR For African Americans > 60 (> 60); eGFR For Non-African Americans > 60 (> 60)
[2019-07-19] MEDS ORDERED: Water for inj. (sterile) 20 ML IV ONE (03:58)
[2019-07-19] MEDS: Cefepime HCl 2,000 MG in Water for inj. (sterile) 20 ML IVPB SCH ×2 (04:04→16:32)
[2019-07-19] MEDS: *HR* Heparin 5,000 UNIT/ML VIAL SQ SCH ×2 (05:54→18:10)
[2019-07-19] MEDS: Budesonide Neb 0.5 MG/2 ML IH SCH ×2 (07:19→20:22)
[2019-07-19] MEDS: 0.9 % Sodium Chloride 1,000 ML IVC SCH (08:00)
--- NOTE | 2019-07-19 10:09 | AcuteCareSurgery Progress Note ---
Date of Encounter: 07/19/19 Time of Encounter: 09:30 - Assessment and Plan (1) Pressure ulcer Current Visit: Yes Status: Acute Multiple decubitus ulcers of the sacrum, ischial tuberosities, heels, and medial right tibial area. No sharp debridement is required. Continue aggressive pressure-relief with current dressing changes. Surgery will sign off Qualifiers: Pressure injury location: contiguous region involving buttock and hip Pressure injury stage: stage 4 Laterality: unspecified laterality Qualified Code(s): L89.44 - Pressure ulcer of contiguous site of back, buttock and hip, stage 4 Subjective Narrative: The patient is seen and evaluated in his room with his floor nurse. I personally examined the complex decubitus ulcers across both sacral areas in both ischial tuberosities. I also evaluated the pressure decubitus on the medial aspect of the right upper leg. All wounds are being treated appropriately with dressing changes. The periwound tissues are in condition. The patient is on aggressive pressure-relief. No sharp debridement is necessary. Continue current dressing changes. Follow-up wound clinic. Acute care surgery will sign off Objective Vital Signs - Last 8 Hours Temp Pulse Resp BP Pulse Ox 07/19/19 07:20 97.5 F L 64 18 90/51 98 07/19/19 03:18 64 16 105/65 99 Intake and Output 07/18/19 07/19/19 07/19/19 23:59 07:59 15:59 Intake Total 1000 / 1700 Output Total 1300 / 2050 1350 / 1350 Balance -300 / -350 -1350 / -1350 Intake: IV Fluids 1000 / 1700 0.9 % Sodium Chloride 1,000 ML 1000 / 1000 @ 100 mls/hr IVC .Q10H [facility] Rx#: [id number] Output: Catheter 1300 / 2050 1350 / 1350 Suprapubic 1350 / 1350 Other: Meal Dinner Percent of Meal Consumed 100% Blood Glucose* 121 - General physical appearance chronically ill, other (Paraplegic) - Neck Neck exam: no masses, no bruits, trachea midline - Respiratory normal expansion, normal respiratory effort, clear to auscultation - Cardiovascular Cardiovascular exam: Present: RRR, no murmurs/rubs/gallops - Abdomen Abdomen: Present: bowel sounds present, soft, distended - Integumentary other (Multiple decubitus ulcers enumerated in the nursing notes. He has bilateral sacral and bilateral ischial as well as bilateral heel and medial r ight tibial. All areas are granulated. Periwound tissues are in excellent condition. No sharp debridement is necessary.) - Psychiatric oriented to time, oriented to person, oriented to place, speech is normal, memory intact - Labs 07/19/19 01:14 07/19/19 01:14 Diabetes panel 07/19/19 Range/Units 01:14 Sodium 138 (136-145) mEq/L Potassium 4.3 (3.5-5.1) mEq/L Chloride 102 (98-107) mEq/L Carbon Dioxide 29 (23-29) mEq/L BUN 22 H (6-20) mg/dL Creatinine 0.56 L (0.70-1.30) mg/dL Glucose 90 (70-105) mg/dL Calcium 8.7 (8.6-10.3) mg/dL Calcium panel 07/19/19 Range/Units 01:14 Calcium 8.7 (8.6-10.3) mg/dL Pituitary panel 07/19/19 Range/Units 01:14 Sodium 138 (136-145) mEq/L Potassium 4.3 (3.5-5.1) mEq/L Chloride 102 (98-107) mEq/L Carbon Dioxide 29 (23-29) mEq/L BUN 22 H (6-20) mg/dL Creatinine 0.56 L (0.70-1.30) mg/dL Glucose 90 (70-105) mg/dL Calcium 8.7 (8.6-10.3) mg/dL Adrenal panel 07/19/19 Range/Units 01:14 Sodium 138 (136-145) mEq/L Potassium 4.3 (3.5-5.1) mEq/L Chloride 102 (98-107) mEq/L Carbon Dioxide 29 (23-29) mEq/L BUN 22 H (6-20) mg/dL Creatinine 0.56 L (0.70-1.30) mg/dL Glucose 90 (70-105) mg/dL Calcium 8.7 (8.6-10.3) mg/dL Consult Discharge Plan - Plan Referrals: NONE,PCP [Non-Partnered Physician] - ([facility])
[2019-07-19] MEDS: Sucralfate 1 GM TABLET PO SCH ×2 (10:15→16:35)
[2019-07-19] MEDS: Baclofen 10 MG TABLET PO SCH ×3 (10:17→21:52)
[2019-07-19] MEDS: Lactobacillus 1 EACH CAP.SPRINK PO SCH (10:17)
[2019-07-19] MEDS: Zinc Sulfate 220 MG CAPSULE PO SCH (10:17)
[2019-07-19] MEDS: Loratadine 10 MG TABLET PO SCH (10:17)
[2019-07-19] MEDS: Sennosides/Docusate Sodium TABLET PO SCH (10:18)
[2019-07-19] MEDS: ALPRAZolam 0.5 MG TABLET PO SCH ×3 (10:18→21:51)
[2019-07-19] MEDS: Gabapentin 300 MG CAPSULE PO SCH ×3 (10:18→21:52)
[2019-07-19] MEDS: Lactulose Oral Soln 20 GM/30 ML UDC PO SCH (10:18)
[2019-07-19] MEDS: Gentamicin Oint 15 GM TUBE TP SCH (10:18)
[2019-07-19] MEDS: MOM Conc 10 ML UD.LIQ PO SCH (10:18)
[2019-07-19] MEDS: Nicotine 21 MG PATCH.TD24 TD SCH (10:19)
--- NOTE | 2019-07-19 11:15 | Internal Med Progress Note ---
Hospitalist Progress Note - Encounter Date of Encounter: 07/19/19 Time of Encounter: 08:25 - Subjective Interval History: No major events overnight. Patient was seen this a.m. He denied fever, chills or night sweats. He has no nausea, vomiting or abdominal pain. Patient denied chest pain, shortness of breath or palpitation. Patient is a complaining about pain as a pain medication is helping for few hours. - Exam Vitals: Temp Pulse Resp BP Pulse Ox 97.5 F L 64 18 90/51 98 07/19/19 07:20 07/19/19 07:20 07/19/19 07:20 07/19/19 07:20 07/19/19 07:20 Exam: General: Patient is alert, oriented 3. Head: Atraumatic, normal inspection, normocephalic. Eye: EOMI, PERRLA, no scleral icterus noted. ENT: Mucous membranes moist. Neck: Tracheal mask with no discharge Respiratory: No respiratory distress, rhonchi, or wheezes noted, suprapubic cathater. Cardiovascular: Regular rate and regular rhythm, GI: Soft, nondistended, normal bowel sounds. Extremities: Wound dressing in the back and left hip. Upper extremities are contracted, lower extremities Neurological: Alert, oriented 3, Psychiatric: normal affect, normal mood. Skin: Dry, intact, warm. Normal color. No rashes. - Assessment and Plan (1) Osteomyelitis Current Visit: Yes Status: Acute (2) Quadriplegia Current Visit: Yes Status: Chronic (3) DVT prophylaxis Current Visit: Yes Status: Acute (4) Suprapubic catheter Current Visit: Yes Status: Chronic (5) Pressure ulcer Current Visit: Yes Status: Acute (6) Severe protein-calorie malnutrition Current Visit: Yes Status: Chronic - Summary of Assessment and Plan Summary of Assessment and Plan: 43-year-old male with history of whether plasia status post tracheostomy, colostomy, suprapubic catheter, decubitus ulcer who came into the hospital due to wound infection. Acute OM of the left proximal femur/greater trochanter: He is afebrile, hemodynamically stable. Has no leukocytosis. Blood cultures pending, wound cultures growing MDRO,MRSA, Pseudomonas, Proteus, Klebsiella. Had bedside I&D by surgery, no more debridements needed. patient won't benefit from plastic surgery and flap until his nutrition improves. Continue wound care. ID is on board, on Vanc/Cefepime/Colistin day3 . Pain management with scheduled and breakthrough pain. Severe protein-calorie malnutrition: consult placed to dietitian, low prealbumin level. On ensure Bacteriuria: UA is positive for LE, UN and WBC. likely a contamination. UCx sent from the ED. Quadriplegia with upper extremity contracture: Continue home medication Chronic constipation: Continue home bowel regimen Tobacco abuse: consulted to quit smoking, On nicotine patch. DVT prophylaxis: Subcutaneous heparin. Disposition: Inpatient, will benefit from LTAC referral for above comorbdities. - Time Spent with Patient Total time spent is greater than 50% in coordination of care (as documented) at patient's floor/unit and/or counseling patient: Plan of Care Discussed with: patient Internal Medicine: Result - Labs CBC & Chem 7: 07/19/19 01:14 07/19/19 01:14 Labs: Short CBC 07/19/19 Range/Units 01:14 WBC 4.8 (4.3-11.1) K/mcL Hgb 10.2 L (12.9-16.9) g/dL Hct 34.7 L (37.5-50.1) % Plt Count 206 (140-400) K/mcL BMP 07/19/19 01:14 Sodium 138 Potassium 4.3 Chloride 102 Carbon Dioxide 29 BUN 22 H Creatinine 0.56 L Glucose 90 Calcium 8.7 Consult Discharge Plan - Plan Referrals: NONE,PCP [Non-Partnered Physician] - ([facility]) (1) Osteomyelitis Qualifiers: Osteomyelitis type: other acute Osteomyelitis location: femur Laterality: left Qualified Code(s): M86.152 - Other acute osteomyelitis, left femur (5) Pressure ulcer Qualifiers: Pressure injury location: contiguous region involving buttock and hip Pressure injury stage: stage 4 Laterality: unspecified laterality Qualified C ode(s): L89.44 - Pressure ulcer of contiguous site of back, buttock and hip, stage 4
[2019-07-19] MEDS: Cefepime HCl 2,000 MG in 0.9 % Sodium Chloride Mini Bag 100 ML IVPB SCH (12:10)
[2019-07-19] MEDS ORDERED: *HR* OxyCODONE Immed Rel 5 MG TABLET PO PRN (14:43)
--- NOTE | 2019-07-19 14:50 | IR Procedure Note ---
Date of procedure: 07/19/19 Consent Obtained: Verbal consent Timeout: Correct patient and procedure verified, Time out performed, Skin prep completed Local anesthetic: Lidocaine 1% Was there an training and development assistant present: No Estimated blood loss (cc): 0 Complications: None; Tolerated procedure well Indications: Sacral osteomyelitis Procedure Performed: PICC placement Results/Findings (any specimens removed): Right basilic vein 5F DL 42 cm power picc placement Post Procedure Treatment Plan: monitor on floor Specimen: none
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
[2019-07-19] MEDS ORDERED: Methylnaltrexone 12 MG/0.6 ML SYRINGE SQ ONE (16:29)
[2019-07-20] MEDS: Colistin (Colistimethate) 150 MG in 0.9 % Sodium Chloride 50 ML IVPB SCH (01:15)
[2019-07-20] MEDS: Cefepime HCl 2,000 MG in Water for inj. (sterile) 20 ML IVPB SCH (03:33)
[2019-07-20 05:20] LABS: Hematocrit 35.5 % (37.5-50.1); Hemoglobin 10.6 g/dL (12.9-16.9); Mean Corpuscular HGB Conc 29.9 g/dL (31.6-35.5); Mean Corpuscular Hemoglobin 28.6 pg (28.0-33.3); Mean Corpuscular Volume 95.7 fL (83.0-100.0); Mean Platelet Volume 9.3 fL (9.4-12.4); Platelet Count 208 K/mcL (140-400); Red Blood Count 3.71 M/mcL (4.19-5.50); Red Cell Distribution Width 16.6 % (11.5-14.5); White Blood Count 5.8 K/mcL (4.3-11.1)
[2019-07-20 05:39] LABS: BUN/Creatinine Ratio 39 (6-26); Blood Urea Nitrogen 21 mg/dL (6-20); Calcium 9.3 mg/dL (8.6-10.3); Carbon Dioxide 31 mEq/L (23-29); Chloride 102 mEq/L (98-107); Glucose 93 mg/dL (70-105); Osmolality,Calculated 285 (280-300); Potassium 3.9 mEq/L (3.5-5.1); Sodium 136 mEq/L (136-145); eGFR For African Americans > 60 (> 60); eGFR For Non-African Americans > 60 (> 60)
[2019-07-20] MEDS: *HR* Heparin 5,000 UNIT/ML VIAL SQ SCH (06:48)
[2019-07-20] MEDS: Budesonide Neb 0.5 MG/2 ML IH SCH (07:53)
--- NOTE | 2019-07-20 09:08 | Discharge Summary ---
- NOTES TO OUTPATIENT PROVIDER Notes to Outpatient Provider: Patient was admitted for Acute OM of the left proximal femur/greater trochanter with Cx growing MRSA, MDRO,Pseudomonas, Proteus, Klebsiella. General surgery did bedside i&d. ID is started on antibiotics for 6 weeks and follow-up Outpatient next week. He also follow up with wound care and eventually he will require plastic surgery consultation. Follow-up on weekly blood work as per infectious disease. Orders not resulted at time of discharge: Pending orders 07/15/19 12:16 Culture,Blood [BC] Stat 07/16/19 14:28 Culture,Anaerobic [RM] Stat Date of Encounter: 07/20/19 Time of Encounter: 09:20 - Discharge Diagnosis (1) Osteomyelitis Priority: Primary Status: Acute Qualifiers: Osteomyelitis type: other acute Osteomyelitis location: femur Laterality: left Qualified Code(s): M86.152 - Other acute osteomyelitis, left femur (2) Quadriplegia Priority: Secondary Status: Chronic (3) DVT prophylaxis Priority: Secondary Status: Acute (4) Suprapubic catheter Priority: Secondary Status: Chronic (5) Pressure ulcer Priority: Secondary Status: Acute Qualifiers: Pressure injury location: contiguous region involving buttock and hip Pressure injury stage: stage 4 Laterality: unspecified laterality Qualified Code(s): L89.44 - Pressure ulcer of contiguous site of back, buttock and hip, stage 4 (6) Severe protein-calorie malnutrition Priority: Secondary Status: Chronic Hospital course: 43-year-old male with history of whether plasia status post tracheostomy, colostomy, suprapubic catheter, decubitus ulcer who was managed for Acute OM of the left proximal femur/greater trochanter. Patient remained afebrile and hemodynamically stable. wound cultures growing MDRO, MRSA, Pseudomonas, Proteus, Klebsiella. Had bedside I&D by surgery. ID consulted and he was started on Vanc/Cefepime/Colistin. Gen. surgery cleared the patient and patient would be discharged back to [facility] for 6 weeks of IV antibiotics after he got a PICC line placed. He will follow up with wound care and infectious disease as outpatient. Discharge discussed with: patient - Time Spent with Patient Total time spent providing and/or coordinating discharge services: 60 minutes - Discharge Medications Prescriptions: New Cefepime HCl/Dextrose, Iso-Osm [Cefepime 2 gm Injection] 2 gm IV BID 42 Days #84 mls Colistin (Colistimethate Na) [Colistimethate] 150 mg IV BID 42 Days #84 vial Vancomycin [Vancocin] 750 mg IV BID 42 Days #84 vial Trolamine Salicylate/Aloe Vera [Aspercreme 10%] 1 appl TP TID PRN #1 tube PRN Reason: See Comments Miconazole 2% cream [Marce Antifungal] 1 appl TP BID #1 tube Sodium Hypochlorite 0.25% [Dakin's (Half-Strength 0.25%)] 1 appl TP BID #1 bottle Gentamicin Oint [Garamycin] 1 appl TP DAILY #1 tube Collagenase Oint [Santyl] 1 appl TP DAILY #1 tube Continued Zinc Sulfate 220 mg PO DAILY Ascorbate Calcium [Vitamin C] 500 mg PO DAILY Sucralfate [Carafate] 1 gm PO BID Multivit,Th Iron,Other Min [Thera-M] 1 each PO DAILY Budesonide Neb [Pulmicort Neb] 0.5 mg IH BIDR Potassium Chloride [K-Tab ER] 20 meq PO DAILY Omeprazole [PriLOSEC] 40 mg PO DAILY Polyethylene Glycol 3350 [MiraLAX] 17 gm PO BID OxyCODONE Immed Rel [Roxicodone 10 MG] 10 mg PO Q6H Midodrine HCl 10 mg PO TID Lactulose 20 g PO DAILY PRN PRN Reason: Constipation Ipratropium/Albuterol Neb [Duoneb] 3 ml IH Q4HR PRN PRN Reason: Shortness Of Breath Ibuprofen [Motrin] 600 mg PO TID PRN PRN Reason: Pain Ferrous Sulfate [Iron] 325 mg PO BID Dicyclomine Hcl [Bentyl] 20 mg PO TID Cetirizine HCl [24Hour Allergy] 10 mg PO DAILY Baclofen [Lioresal] 20 mg PO TID Lactobacillus Acidophilus [Acidophilus] 1 each PO DAILY ALPRAZolam [Xanax 0.5 MG Tablet] 0.5 mg PO TID Amino Acids/Protein Hydrolys [Pro-Stat Awc Liquid] 30 ml PO BID Dextran 70/Hypromellose [Natural Balance Tears Eye Drop] 1 drop BOTH EYES QID PRN PRN Reason: Dry Eyes Gabapentin [Neurontin] 1,200 mg PO TID Lactulose [Enulose] 20 g PO DAILY Linaclotide [Linzess] 290 mcg PO DAILY Magnesium Hydroxide [Milk of Magnesia] 30 ml PO DAILY Midodrine HCl 10 mg PO DAILY PRN PRN Reason: SBP<100 Oxybutynin Chloride [Oxybutynin Chloride ER] 15 mg PO BID Oxycodone HCl 10 mg PO Q4H PRN PRN Reason: Pain Sennosides/Docusate Sodium [Senna Plus 8.6-50 mg Tablet] 2 each PO DAILY Solifenacin Succinate [Vesicare] 5 mg PO DAILY Methocarbamol [Robaxin] 500 mg PO Q8HR PRN PRN Reason: Muscle Spasm No Action OxyCODONE Immed Rel [Roxicodone 30 MG] 30 mg PO Q6H Home Medications: ALPRAZolam [Xanax 0.5 MG Tablet] 0.5 mg PO TID 09/07/18 [History] Ascorbate Calcium [Vitamin C] 500 mg PO DAILY 09/07/18 [History] Baclofen [Lioresal] 20 mg PO TID 09/07/18 [History] Budesonide Neb [Pulmicort Neb] 0.5 mg IH BIDR 09/07/18 [History] Cetirizine HCl [24Hour Allergy] 10 mg PO DAILY 09/07/18 [History] Dicyclomine Hcl [Bentyl] 20 mg PO TID 09/07/18 [History] Ferrous Sulfate [Iron] 325 mg PO BID 09/07/18 [History] Ibuprofen [Motrin] 600 mg PO TID PRN 09/07/18 [History] Ipratropium/Albuterol Neb [Duoneb] 3 ml IH Q4HR PRN 09/07/18 [History] Lactobacillus Acidophilus [Acidophilus] 1 each PO DAILY 09/07/18 [History] Lactulose 20 g PO DAILY PRN 09/07/18 [History] Midodrine HCl 10 mg PO TID 09/07/18 [History] Multivit,Th Iron,Other Min [Thera-M] 1 each PO DAILY 09/07/18 [History] Omeprazole [PriLOSEC] 40 mg PO DAILY 09/07/18 [History] OxyCODONE Immed Rel [Roxicodone 10 MG] 10 mg PO Q6H 09/07/18 [History] Polyethylene Glycol 3350 [MiraLAX] 17 gm PO BID 09/07/18 [History] Potassium Chloride [K-Tab ER] 20 meq PO DAILY 09/07/18 [History] Sucralfate [Carafate] 1 gm PO BID 09/07/18 [History] Zinc Sulfate 220 mg PO DAILY 09/07/18 [History] Methocarbamol [Robaxin] 500 mg PO Q8HR PRN 04/14/19 [History] OxyCODONE Immed Rel [Roxicodone 30 MG] 30 mg PO Q6H 04/14/19 [History] Amino Acids/Protein Hydrolys [Pro-Stat Awc Liquid] 30 ml PO BID 07/15/19 [History] Dextran 70/Hypromellose [Natural Balance Tears Eye Drop] 1 drop BOTH EYES QID PRN 07/15/19 [History] Gabapentin [Neurontin] 1,200 mg PO TID 07/15/19 [History] Lactulose [Enulose] 20 g PO DAILY 07/15/19 [History] Linaclotide [Linzess] 290 mcg PO DAILY 07/15/19 [History] Magnesium Hydroxide [Milk of Magnesia] 30 ml PO DAILY 07/15/19 [History] Midodrine HCl 10 mg PO DAILY PRN 07/15/19 [History] Oxybutynin Chloride [Oxybutynin Chloride ER] 15 mg PO BID 07/15/19 [History] Oxycodone HCl 10 mg PO Q4H PRN 07/15/19 [History] Sennosides/Docusate Sodium [Senna Plus 8.6-50 mg Tablet] 2 each PO DAILY 07/15/19 [History] Solifenacin Succinate [Vesicare] 5 mg PO DAILY 07/15/19 [History] Cefepime HCl/Dextrose, Iso-Osm [Cefepime 2 gm Injection] 2 gm IV BID 42 Days #84 mls 07/19/19 [Rx] Colistin (Colistimethate Na) [Colistimethate] 150 mg IV BID 42 Days #84 vial 07/19/19 [Rx] Vancomycin [Vancocin] 750 mg IV BID 42 Days #84 vial 07/19/19 [Rx] Collagenase Oint [Santyl] 1 appl TP DAILY #1 tube 07/20/19 [Rx] Gentamicin Oint [Garamycin] 1 appl TP DAILY #1 tube 07/20/19 [Rx] Miconazole 2% cream [Marce Antifungal] 1 appl TP BID #1 tube 07/20/19 [Rx] Sodium Hypochlorite 0.25% [Dakin's (Half-Strength 0.25%)] 1 appl TP BID #1 bottle 07/20/19 [Rx] Trolamine Salicylate/Aloe Vera [Aspercreme 10%] 1 appl TP TID PRN #1 tube 07/20/19 [Rx] Allergies/Adverse Reactions: Allergy/AdvReac Type Severity Reaction Status Date / Time No Known Allergies Allergy Verified 07/15/19 11:02 Date of admission: 07/15/19 16:32 Primary care physician: Judd Bautista MD Consults: 07/15/19 16:07 Consult to Infectious Diseases [CONS] Routine Consulting Provider: Infectious Disease Rhianna Reason for Consult: OM Call Completed: No Consult to Surgery [CONS] Routine Consulting Provider: Surgery Rhianna Surgical Reason for Consult: Sacral OM, Bx? Call Completed: No 07/15/19 16:09 Consult to Wound Care [CONS] Routine Reason for Consult: sacral ulcer Call Completed: No 07/15/19 18:55 Consult to Mat Gauger [CONS] Routine Reason for SW Consult: LTAC d/c and possible longterm IV atb d/t osteomyl itis 07/16/19 11:17 dietary consult [Consult to Nutrition] [CONS] Routine Comment: Consulting Provider: NUTRITION Reason for Dietary Consult: Other Other:: Patient has wounds, malnourished 07/16/19 14:37 Consult to Invasive Line Access Team [CONS] Routine Reason for Consult: Picc Line Insertion Line Type: PICC 07/19/19 13:23 Consult to Interventional Radiology [CONS] Routine Consulting Provider: Radiology Interventional Cols Reason for Consult: PICC line placement, failed attempt by IV team Call Completed: No - Constitutional Vitals: Temp Pulse Resp BP Pulse Ox 97.6 F 84 16 86/51 93 07/20/19 06:47 07/20/19 06:47 07/20/19 07:53 07/20/19 06:47 07/20/19 07:53 Exam: General: Patient is alert, oriented 3. Head: Atraumatic, normal inspection, normocephalic. Eye: EOMI, PERRLA, no scleral icterus noted. ENT: Mucous membranes moist. Neck: Tracheal mask with no discharge Respiratory: No respiratory distress, rhonchi, or wheezes noted, suprapubic cathater. Cardiovascular: Regular rate and regular rhythm, GI: Soft, nondistended, normal bowel sounds. Extremities: Wound dressing in the back and left hip. Upper extremities are contracted, lower extremities. RUE PICC line Neurological: Alert, oriented 3, Psychiatric: normal affect, normal mood. Skin: Dry, intact, warm. Normal color. No rashes. - Patient Status Disposition: Transfer SNF Functional capacity at discharge: bed bound Overall status at discharge: patient is back to baseline - Ambulatory Orders Ambulatory Orders: Basic Metabolic Panel [CHEM] Time Frame: 1 Week, Facility: [facility], Location: Lab Basic Metabolic Panel [CHEM] Time Frame: 07/26/19, Facility: [facility], Location: Lab Basic Metabolic Panel [CHEM] Time Frame: 08/02/19, Facility: [facility], Location: Lab Basic Metabolic Panel [CHEM] Time Frame: 08/09/19, Facility: [facility], Location: Lab Basic Metabolic Panel [CHEM] Time Frame: 08/16/19, Facility: [facility], Location: Lab Basic Metabolic Panel [CHEM] Time Frame: 08/23/19, Facility: [facility], Location: Lab Basic Metabolic Panel [CHEM] Time Frame: 08/30/19, Facility: [facility], Location: Lab C-Reactive Protein [CHEM] Time Frame: 1 Week, Facility: [facility], Location: Lab C-Reactive Protein [CHEM] Time Frame: 07/26/19, Facility: [facility], Location: Lab C-Reactive Protein [CHEM] Time Frame: 08/02/19, Facility: [facility], Location: Lab C-Reactive Protein [CHEM] Time Frame: 08/09/19, Facility: [facility], Location: Lab C-Reactive Protein [CHEM] Time Frame: 08/16/19, Facility: [facility], Location: Lab C-Reactive Protein [CHEM] Time Frame: 08/23/19, Facility: [facility], Location: Lab C-Reactive Protein [CHEM] Time Frame: 08/30/19, Facility: [facility], Location: Lab Complete Blood Count [HEME] Time Frame: 1 Week, Facility: [facility], Location: Lab Complete Blood Count [HEME] Time Frame: 07/26/19, Facility: [facility], Location: Lab Complete Blood Count [HEME] Time Frame: 08/02/19, Facility: [facility], Location: Lab Complete Blood Count [HEME] Time Frame: 08/09/19, Facility: [facility], Location: Lab Complete Blood Count [HEME] Time Frame: 08/16/19, Facility: [facility], Location: Lab Complete Blood Count [HEME] Time Frame: 08/23/19, Facility: [facility], Location: Lab Complete Blood Count [HEME] Time Frame: 08/30/19, Facility: [facility], Location: Lab Erythrocyte Sedimentation Rate [HEME] Time Frame: 1 Week, Facility: [facility], Location: Lab Erythrocyte Sedimentation Rate [HEME] Time Frame: 07/26/19, Facility: [facility], Location: Lab Erythrocyte Sedimentation Rate [HEME] Time Frame: 08/02/19, Facility: [facility], Location: Lab Erythrocyte Sedimentation Rate [HEME] Time Frame: 08/09/19, Facility: [facility], Location: Lab Erythrocyte Sedimentation Rate [HEME] Time Frame: 08/16/19, Facility: [facility], Location: Lab Erythrocyte Sedimentation Rate [HEME] Time Frame: 08/23/19, Facility: [facility], Location: Lab Erythrocyte Sedimentation Rate [HEME] Time Frame: 08/30/19, Facility: [facility], Location: Lab - Discharge Instructions Follow Up With: Corey Barlow MD [Non-Partnered Physician] - 07/27/19 9:00 am (Please follow up as schedule...) Lyla Massey CNP [Advanced Practice Nurse] - 08/05/19 2:00 pm (Please follow up asschedule...) NONE,PCP [Non-Partnered Physician] - (WMP) Forms: ED Satisfaction Letter - Diet and Activity Activity: wear oxygen at all times Diet: low salt diet
--- NOTE | 2019-07-20 09:19 | Physician Discharge Referral ---
ExtendedCare Referral Info Transfer To: SNF Provider in Charge after Transfer: PCP Institutional Level of Care: Skilled - Diagnosis (1) Osteomyelitis Priority: Primary Status: Acute (2) Quadriplegia Priority: Secondary Status: Chronic (3) DVT prophylaxis Priority: Secondary Status: Acute (4) Suprapubic catheter Priority: Secondary Status: Chronic (5) Pressure ulcer Priority: Secondary Status: Acute (6) Severe protein-calorie malnutrition Priority: Secondary Status: Chronic - Transfer Medications Prescriptions: Trolamine Salicylate/Aloe Vera [Aspercreme 10%] 1 appl TP TID PRN #1 tube PRN Reason: See Comments Prescription Printed Miconazole 2% cream [Marce Antifungal] 1 appl TP BID #1 tube Prescription Printed Cefepime HCl/Dextrose, Iso-Osm [Cefepime 2 gm Injection] 2 gm IV BID 42 Days #84 mls Prescription Printed Colistin (Colistimethate Na) [Colistimethate] 150 mg IV BID 42 Days #84 vial Prescription Printed Sodium Hypochlorite 0.25% [Dakin's (Half-Strength 0.25%)] 1 appl TP BID #1 bottle Prescription Printed Gentamicin Oint [Garamycin] 1 appl TP DAILY #1 tube Prescription Printed Collagenase Oint [Santyl] 1 appl TP DAILY #1 tube Prescription Printed Vancomycin [Vancocin] 750 mg IV BID 42 Days #84 vial Prescription Printed Home Medications: ALPRAZolam [Xanax 0.5 MG Tablet] 0.5 mg PO TID 09/07/18 [History] Ascorbate Calcium [Vitamin C] 500 mg PO DAILY 09/07/18 [History] Baclofen [Lioresal] 20 mg PO TID 09/07/18 [History] Budesonide Neb [Pulmicort Neb] 0.5 mg IH BIDR 09/07/18 [History] Cetirizine HCl [24Hour Allergy] 10 mg PO DAILY 09/07/18 [History] Dicyclomine Hcl [Bentyl] 20 mg PO TID 09/07/18 [History] Ferrous Sulfate [Iron] 325 mg PO BID 09/07/18 [History] Ibuprofen [Motrin] 600 mg PO TID PRN 09/07/18 [History] Ipratropium/Albuterol Neb [Duoneb] 3 ml IH Q4HR PRN 09/07/18 [History] Lactobacillus Acidophilus [Acidophilus] 1 each PO DAILY 09/07/18 [History] Lactulose 20 g PO DAILY PRN 09/07/18 [History] Midodrine HCl 10 mg PO TID 09/07/18 [History] Multivit,Th Iron,Other Min [Thera-M] 1 each PO DAILY 09/07/18 [History] Omeprazole [PriLOSEC] 40 mg PO DAILY 09/07/18 [History] OxyCODONE Immed Rel [Roxicodone 10 MG] 10 mg PO Q6H 09/07/18 [History] Polyethylene Glycol 3350 [MiraLAX] 17 gm PO BID 09/07/18 [History] Potassium Chloride [K-Tab ER] 20 meq PO DAILY 09/07/18 [History] Sucralfate [Carafate] 1 gm PO BID 09/07/18 [History] Zinc Sulfate 220 mg PO DAILY 09/07/18 [History] Methocarbamol [Robaxin] 500 mg PO Q8HR PRN 04/14/19 [History] OxyCODONE Immed Rel [Roxicodone 30 MG] 30 mg PO Q6H 04/14/19 [History] Amino Acids/Protein Hydrolys [Pro-Stat Awc Liquid] 30 ml PO BID 07/15/19 [History] Dextran 70/Hypromellose [Natural Balance Tears Eye Drop] 1 drop BOTH EYES QID PRN 07/15/19 [History] Gabapentin [Neurontin] 1,200 mg PO TID 07/15/19 [History] Lactulose [Enulose] 20 g PO DAILY 07/15/19 [History] Linaclotide [Linzess] 290 mcg PO DAILY 07/15/19 [History] Magnesium Hydroxide [Milk of Magnesia] 30 ml PO DAILY 07/15/19 [History] Midodrine HCl 10 mg PO DAILY PRN 07/15/19 [History] Oxybutynin Chloride [Oxybutynin Chloride ER] 15 mg PO BID 07/15/19 [History] Oxycodone HCl 10 mg PO Q4H PRN 07/15/19 [History] Sennosides/Docusate Sodium [Senna Plus 8.6-50 mg Tablet] 2 each PO DAILY 07/15/19 [History] Solifenacin Succinate [Vesicare] 5 mg PO DAILY 07/15/19 [History] Cefepime HCl/Dextrose, Iso-Osm [Cefepime 2 gm Injection] 2 gm IV BID 42 Days #84 mls 07/19/19 [Rx] Colistin (Colistimethate Na) [Colistimethate] 150 mg IV BID 42 Days #84 vial 07/19/19 [Rx] Vancomycin [Vancocin] 750 mg IV BID 42 Days #84 vial 07/19/19 [Rx] Collagenase Oint [Santyl] 1 appl TP DAILY #1 tube 07/20/19 [Rx] Gentamicin Oint [Garamycin] 1 appl TP DAILY #1 tube 07/20/19 [Rx] Miconazole 2% cream [Marce Antifungal] 1 appl TP BID #1 tube 07/20/19 [Rx] Sodium Hypochlorite 0.25% [Dakin's (Half-Strength 0.25%)] 1 appl TP BID #1 bottle 07/20/19 [Rx] Trolamine Salicylate/Aloe Vera [Aspercreme 10%] 1 appl TP TID PRN #1 tube 07/20/19 [Rx] Allergies/Adverse Reactions: Allergy/AdvReac Type Severity Reaction Status Date / Time No Known Allergies Allergy Verified 07/15/19 11:02 - Respiratory Orders Oxygen / L per min (4 l) Smoking Cessation: Smoking cessation has been advised. For more information, call the [place] Tobacco Quit Line at 8-698-HSKT-NOW. - Lab Orders Lab Orders: Other (include drug levels w/frequency) (BMP/CBC/ESR/CRP weekly) - Mobility Orders Bedrest - Rehabiliation Orders Rehab Potential: Fair - Treatments Skin tear care topically daily PRN per policy List/Other: Wound care: Right lateral hip: cleanse and apply gentamicin ointment. Apply santyl nickel thick, cover with saline moistended gauze. cover with ABD. tape to secure Left lateral hip: daily packing with 1/4 strength dakin's solution. cover with ABD - Diet Orders Regular (Ensure TID DAILY) CERTIFICATION: I certify that the transfer of the above named patient to an Extended Care Facility is necessary for the continuing treatment of the diagnosis listed. The above information is true and accurate reflection of patient's current condition. Confidential - Redisclosure prohibited without a patient's written consent.
[2019-07-20] MEDS ORDERED: 0.9 % Sodium Chloride 500 ML IV ONE (09:38)
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
[2019-07-20] MEDS: Sucralfate 1 GM TABLET PO SCH (10:18)
[2019-07-20] MEDS: Zinc Sulfate 220 MG CAPSULE PO SCH (10:18)
[2019-07-20] MEDS: MOM Conc 10 ML UD.LIQ PO SCH (10:18)
[2019-07-20] MEDS: Lactulose Oral Soln 20 GM/30 ML UDC PO SCH (10:18)
[2019-07-20] MEDS: Baclofen 10 MG TABLET PO SCH (10:18)
[2019-07-20] MEDS: Sennosides/Docusate Sodium TABLET PO SCH (10:19)
[2019-07-20] MEDS: ALPRAZolam 0.5 MG TABLET PO SCH (10:19)
[2019-07-20] MEDS: Nicotine 21 MG PATCH.TD24 TD SCH (10:19)
[2019-07-20] MEDS: Lactobacillus 1 EACH CAP.SPRINK PO SCH (10:19)
[2019-07-20] MEDS: Gabapentin 300 MG CAPSULE PO SCH (10:19)
[2019-07-20] MEDS: Loratadine 10 MG TABLET PO SCH (10:19)
[2019-07-20 11:25] VITALS: BP 107/71
[2019-07-20] MEDS: Gentamicin Oint 15 GM TUBE TP SCH (11:45)
[2019-07-20] MEDS ORDERED: Aminoglycoside Consult 1 EACH MC ONE (12:53)
== END 2019-07-20 12:54 | DRG 344 ==
LOC: 2ANU 10:36 → EMEROOARM 10:36 → SUATTDRO 16:32 → 2ANU 17:39
PROVIDERS: ADMIT Internal Medicine; ATTEND Internal Medicine

== ENCOUNTER 2019-07-21 09:01 | Inpatient (IN) ==
[2019-07-21] MEDS ORDERED: 0.9 % Sodium Chloride 1,000 ML IVC ONE ×2 (09:07→09:08)
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
--- NOTE | 2019-07-21 09:27 | Emergency Department Note ---
Disposition Clinical Impression: Osteomyelitis Qualifiers: Osteomyelitis type: unspecified type Osteomyelitis location: femur Laterality: left Qualified Code(s): M86.9 - Osteomyelitis, unspecified Stage 4 decubitus ulcer Qualifiers: Pressure injury location: buttock Laterality: left Qualified Code(s): L89.324 - Pressure ulcer of left buttock, stage 4 Disposition: Admitted As Inpatient Condition: Fair Time of Disposition: 10:35 General Adult HPI - General Chief complaint: ED Nausea/Vomiting/Diarrhea Stated complaint: Numbness and Tingling BLE Time Seen by Provider: 07/21/19 09:01 Source: EMS Limitations: no limitations Nursing Notes Reviewed: Yes Vital Signs Reviewed: Yes - History of Present Illness Pain Scale: 9 - Related Data Home Medications Medication Instructions Recorded Confirmed ALPRAZolam [Xanax 0.5 MG Tablet] 0.5 mg PO TID 09/07/18 07/21/19 Ascorbate Calcium [Vitamin C] 500 mg PO DAILY 09/07/18 07/21/19 Baclofen [Lioresal] 20 mg PO TID 09/07/18 07/21/19 Budesonide Neb [Pulmicort Neb] 0.5 mg IH BIDR 09/07/18 07/21/19 Cetirizine HCl [24Hour Allergy] 10 mg PO DAILY 09/07/18 07/21/19 Dicyclomine Hcl [Bentyl] 20 mg PO TID 09/07/18 07/21/19 Ferrous Sulfate [Iron] 325 mg PO BID 09/07/18 07/21/19 Ibuprofen [Motrin] 600 mg PO TID PRN 09/07/18 07/21/19 Ipratropium/Albuterol Neb [Duoneb] 3 ml IH Q4HR PRN 09/07/18 07/21/19 Lactobacillus Acidophilus 1 each PO DAILY 09/07/18 07/21/19 [Acidophilus] Lactulose 20 g PO DAILY PRN 09/07/18 07/21/19 Midodrine HCl 10 mg PO TID 09/07/18 07/21/19 Multivit,Th Iron,Other Min 1 each PO DAILY 09/07/18 07/21/19 [Thera-M] Omeprazole [PriLOSEC] 40 mg PO DAILY 09/07/18 07/21/19 OxyCODONE Immed Rel [Roxicodone 10 10 mg PO Q6H 09/07/18 07/21/19 MG] Polyethylene Glycol 3350 [MiraLAX] 17 gm PO BID 09/07/18 07/21/19 Potassium Chloride [K-Tab ER] 20 meq PO DAILY 09/07/18 07/21/19 Sucralfate [Carafate] 1 gm PO BID 09/07/18 07/21/19 Zinc Sulfate 220 mg PO DAILY 09/07/18 07/21/19 Methocarbamol [Robaxin] 500 mg PO Q8HR PRN 04/14/19 07/21/19 OxyCODONE Immed Rel [Roxicodone 30 30 mg PO Q6H 04/14/19 07/21/19 MG] Amino Acids/Protein Hydrolys 30 ml PO BID 07/15/19 07/21/19 [Pro-Stat Awc Liquid] Dextran 70/Hypromellose [Natural 1 drop BOTH EYES QID PRN 07/15/19 07/21/19 Balance Tears Eye Drop] Gabapentin [Neurontin] 1,200 mg PO TID 07/15/19 07/21/19 Lactulose [Enulose] 20 g PO DAILY 07/15/19 07/21/19 Linaclotide [Linzess] 290 mcg PO DAILY 07/15/19 07/21/19 Magnesium Hydroxide [Milk of 30 ml PO DAILY 07/15/19 07/21/19 Magnesia] Midodrine HCl 10 mg PO DAILY PRN 07/15/19 07/21/19 Oxybutynin Chloride [Oxybutynin 15 mg PO BID 07/15/19 07/21/19 Chloride ER] Oxycodone HCl 10 mg PO Q4H PRN 07/15/19 07/21/19 Sennosides/Docusate Sodium [Senna 2 each PO DAILY 07/15/19 07/21/19 Plus 8.6-50 mg Tablet] Solifenacin Succinate [Vesicare] 5 mg PO DAILY 07/15/19 07/21/19 Previous Rx's Medication Instructions Recorded Cefepime HCl/Dextrose, Iso-Osm 2 gm IV BID 42 Days #84 mls 07/19/19 [Cefepime 2 gm Injection] Colistin (Colistimethate Na) 150 mg IV BID 42 Days #84 vial 07/19/19 [Colistimethate] Vancomycin [Vancocin] 750 mg IV BID 42 Days #84 vial 07/19/19 Collagenase Oint [Santyl] 1 appl TP DAILY #1 tube 07/20/19 Gentamicin Oint [Garamycin] 1 appl TP DAILY #1 tube 07/20/19 Miconazole 2% cream [Marce 1 appl TP BID #1 tube 07/20/19 Antifungal] Sodium Hypochlorite 0.25% [Dakin's 1 appl TP BID #1 bottle 07/20/19 (Half-Strength 0.25%)] Trolamine Salicylate/Aloe Vera 1 appl TP TID PRN #1 tube 07/20/19 [Aspercreme 10%] Allergies Allergy/AdvReac Type Severity Reaction Status Date / Time No Known Allergies Allergy Verified 07/15/19 11:02 Past Medical History - Past Medical History Medical history: Reports: atrial fibrillation, COPD, DVT, GERD, pulmonary emb olus, other Surgical history: Reports: cholecystectomy, colostomy, tracheostomy, other (PEG tube, nephrostomy tube) Psychiatric history: Reports: anxiety, depression - Social History Smoking Status: Current every day smoker Smokeless Tobacco Status: No Alcohol use: Reports: none Drug use: Reports: none Physical Exam - General Limitations: no limitations General appearance: alert, in no apparent distress Course Vital Signs Temperature 98.2 F 07/21/19 09:02 Pulse Rate 91 07/21/19 09:02 Respiratory Rate 18 07/21/19 09:02 Blood Pressure 73/59 07/21/19 09:02 O2 Sat by Pulse Oximetry 93 07/21/19 09:02 Temperature 98.2 F 07/21/19 09:02 Pulse Rate 69 07/21/19 10:15 Respiratory Rate 20 07/21/19 10:15 Blood Pressure 107/67 07/21/19 10:15 O2 Sat by Pulse Oximetry 99 07/21/19 10:15 Oxygen Delivery Oxygen Delivery Room Air Medical Decision Making - Lab Data Result diagrams: 07/21/19 09:21 07/21/19 09:21 Lab Results 07/21/19 07/21/19 07/21/19 Range/Units 09:21 09:21 09:21 WBC 6.2 (4.3-11.1) K/mcL RBC 4.32 (4.19-5.50) M/mcL Hgb 12.4 L D (12.9-16.9) g/dL Hct 41.4 (37.5-50.1) % MCV 95.8 (83.0-100.0) fL MCH 28.7 (28.0-33.3) pg MCHC 30.0 L (31.6-35.5) g/dL RDW 17.2 H (11.5-14.5) % Plt Count 236 (140-400) K/mcL MPV 9.1 L (9.4-12.4) fL Immature Gran % 0.5 (0-4) % Seg Neutrophils % 77.9 % Lymphocytes % 13.5 % Monocytes % 5.2 % Eosinophils % 2.6 % Basophils % 0.3 % Neutrophils # 4.8 (1.6-8.9) K/mcL Lymphocytes # 0.8 (0.6-4.6) K/mcL Monocytes # 0.3 (0.0-1.3) K/mcL Eosinophils # 0.2 (0.0-0.6) K/mcL Basophils # 0.0 (0.0-0.2) K/mcL Sodium 136 (136-145) mEq/L Potassium 4.4 (3.5-5.1) mEq/L Chloride 101 (98-107) mEq/L Carbon Dioxide 29 (23-29) mEq/L BUN 23 H (6-20) mg/dL Creatinine 0.87 (0.70-1.30) mg/dL Est GFR ( Amer) > 60 (> 60) Est GFR (Non-Af Amer) > 60 (> 60) BUN/Creatinine Ratio 26 (6-26) Glucose 126 H (70-105) mg/dL Calculated Osmolality 287 (280-300) Lactic Acid 1.6 (0.5-2.2) mmol/L Calcium 10.6 H (8.6-10.3) mg/dL Critical Care Time Critical Care Time: No Attestation Statement - Attestation Attestation: For this encounter, I have reviewed the CHECKING CLERK or PA documentation, treatment plan, and medical decision making; and I have had face to face time with this patient. Patient to the ED with a chief complaint of not feeling well. Increased pain and numbness in his left leg. Patient was recently seen and has osteomyelitis in his hip. He was sent back to the [place] [facility] yesterday and he had increased pain and numbness today. On exam he is hypotensive. Multiple open deep wounds to the Botox and sacrum. Serous drainage. Cultures were obtained. Plan. Blood pressure improved with IV hydration. Starting broad-spectrum antibiotics. Admitted to the hospitalist. Normal white count. Afebrile.
[2019-07-21 09:34] LABS: Basophils % 0.3 %; Eosinophils # 0.2 K/mcL (0.0-0.6); Eosinophils % 2.6 %; Hematocrit 41.4 % (37.5-50.1); Immature Granulocytes % 0.5 % (0-4); Lymphocytes # 0.8 K/mcL (0.6-4.6); Lymphocytes % 13.5 %; Mean Corpuscular Hemoglobin 28.7 pg (28.0-33.3); Mean Corpuscular Volume 95.8 fL (83.0-100.0); Mean Platelet Volume 9.1 fL (9.4-12.4); Monocytes # 0.3 K/mcL (0.0-1.3); Monocytes % 5.2 %; Neutrophils # 4.8 K/mcL (1.6-8.9); Platelet Count 236 K/mcL (140-400); Red Blood Count 4.32 M/mcL (4.19-5.50); Red Cell Distribution Width 17.2 % (11.5-14.5); Segmented Neutrophils % 77.9 %; White Blood Count 6.2 K/mcL (4.3-11.1)
[2019-07-21 09:40] LABS: Hemoglobin 12.4 g/dL (12.9-16.9)
[2019-07-21] MEDS ORDERED: Meropenem 1,000 MG in 0.9 % Sodium Chloride Mini Bag 100 ML IVPB ONE (09:51)
[2019-07-21 09:53] LABS: BUN/Creatinine Ratio 26 (6-26); Blood Urea Nitrogen 23 mg/dL (6-20); Calcium 10.6 mg/dL (8.6-10.3); Carbon Dioxide 29 mEq/L (23-29); Chloride 101 mEq/L (98-107); Glucose 126 mg/dL (70-105); Osmolality,Calculated 287 (280-300); Potassium 4.4 mEq/L (3.5-5.1); Sodium 136 mEq/L (136-145); eGFR For African Americans > 60 (> 60); eGFR For Non-African Americans > 60 (> 60)
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
[2019-07-21] MEDS ORDERED: Naloxone 0.4 MG/ML INJ IVP PRN (12:06)
[2019-07-21] MEDS ORDERED: Ondansetron 4 MG/2 ML VIAL IVP PRN (12:06)
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
[2019-07-21] MEDS ORDERED: *HR* OxyCODONE Immed Rel 5 MG TABLET PO PRN (12:33)
[2019-07-21] MEDS ORDERED: Vancomycin 1 EACH in 0.9 % Sodium Chloride 250 ML IVPB PRN (16:00)
[2019-07-21] MEDS ORDERED: Colistin (Colistimethate) 150 MG VIAL IVPB SCH (16:00)
[2019-07-21] MEDS ORDERED: Colistin (Colistimethate) 150 MG in 0.9 % Sodium Chloride 50 ML IVPB SCH (16:00)
[2019-07-21] MEDS ORDERED: Meropenem 1,000 MG in Water for inj. (sterile) 10 ML IVP SCH (18:00)
[2019-07-21] MEDS: *HR* OxyCODONE Immed Rel 15 MG TABLET PO SCH (18:02)
[2019-07-21] MEDS ORDERED: Lactulose 200 GM/300 ML (for enema) RC PRN (21:54)
[2019-07-21] MEDS ORDERED: Trolamine Salicylate/Aloe Vera 35.4 GM TUBE TP PRN (22:36)
[2019-07-21] MEDS ORDERED: Ipratropium/Albuterol Neb 3 ML IH PRN (22:39)
[2019-07-21] MEDS: *HR* Heparin 5,000 UNIT/ML VIAL SQ SCH (22:40)
[2019-07-21] MEDS: Cefepime HCl 2,000 MG in 0.9 % Sodium Chloride Mini Bag 100 ML IVPB SCH (22:41)
[2019-07-21] MEDS: Gabapentin 300 MG CAPSULE PO SCH ×2 (22:44→23:47)
[2019-07-21] MEDS ORDERED: NON-FORMULARY MEDICATION 1 EACH EACH (Oxycodone Immed Rel 10 MG) PO SCH (23:00)
[2019-07-21] MEDS ORDERED: *HR* OxyCODONE Immed Rel 5 MG TABLET PO SCH (23:15)
--- NOTE | 2019-07-22 01:12 | Event Note ---
Date of Encounter: 07/22/19 Time of Encounter: 01:07 There was confusion regarding this pts. home dosing of oxycodone. Original med rec showed 30 mg oxycodone Q6HR OLIVIA plus 10 mg oxycodone Q6HR SSH. In addition, there was an order for 10 mg oxycodone Q4HR PRN. Patient stated that he takes 40 mg oxycodone Q6HR OLIVIA. construction technician spoke with Gali at patient's ECF who stated that the patient is no longer taking 40 mg oxycodone Q6HR OLIVIA. Gali stated that the pt. only takes 10 mg oxycodone immediate release Q4HR PRN for pain. Orders for oxycodone 30 mg and 10 mg OLIVIA cancelled and MAR updated to reflect the pts. current ECF orders.
[2019-07-22 01:24] LABS: Basophils % 0.4 %; Eosinophils # 0.3 K/mcL (0.0-0.6); Eosinophils % 4.8 %; Hematocrit 32.5 % (37.5-50.1); Hemoglobin 9.8 g/dL (12.9-16.9); Immature Granulocytes % 0.4 % (0-4); Lymphocytes # 1.2 K/mcL (0.6-4.6); Mean Corpuscular HGB Conc 30.2 g/dL (31.6-35.5); Mean Corpuscular Hemoglobin 28.7 pg (28.0-33.3); Mean Platelet Volume 9.2 fL (9.4-12.4); Monocytes # 0.4 K/mcL (0.0-1.3); Monocytes % 7.5 %; Neutrophils # 3.7 K/mcL (1.6-8.9); Platelet Count 212 K/mcL (140-400); Red Blood Count 3.42 M/mcL (4.19-5.50); Red Cell Distribution Width 16.6 % (11.5-14.5); Segmented Neutrophils % 65.9 %; White Blood Count 5.6 K/mcL (4.3-11.1)
[2019-07-22 01:43] LABS: BUN/Creatinine Ratio 32 (6-26); Blood Urea Nitrogen 18 mg/dL (6-20); Calcium 9.4 mg/dL (8.6-10.3); Carbon Dioxide 24 mEq/L (23-29); Chloride 102 mEq/L (98-107); Glucose 83 mg/dL (70-105); Osmolality,Calculated 279 (280-300); Potassium 3.4 mEq/L (3.5-5.1); Sodium 134 mEq/L (136-145); eGFR For African Americans > 60 (> 60); eGFR For Non-African Americans > 60 (> 60)
[2019-07-22] MEDS: Gentamicin Oint 15 GM TUBE TP SCH ×2 (03:30→12:06)
[2019-07-22] MEDS: *HR* OxyCODONE Immed Rel 15 MG TABLET PO SCH (04:09)
[2019-07-22] MEDS: *HR* OxyCODONE Immed Rel 5 MG TABLET PO PRN ×3 (04:29→13:17)
[2019-07-22] MEDS: *HR* Heparin 5,000 UNIT/ML VIAL SQ SCH ×3 (04:29→21:15)
[2019-07-22] MEDS: Methocarbamol 500 MG TABLET PO PRN ×2 (04:47→13:17)
[2019-07-22] MEDS ORDERED: Ibuprofen 600 MG TABLET PO ONE (04:54)
--- NOTE | 2019-07-22 08:54 | Internal Med Progress Note ---
Hospitalist Progress Note - Encounter Date of Encounter: 07/22/19 Time of Encounter: 08:53 - Exam Vitals: Temp Pulse Resp BP Pulse Ox 97.4 F L 67 14 121/74 99 07/22/19 07:11 07/22/19 07:11 07/22/19 07:11 07/22/19 07:11 07/22/19 07:11 - Assessment and Plan (1) Osteomyelitis Current Visit: Yes Status: Acute (2) Stage 4 decubitus ulcer Current Visit: Yes Status: Acute (3) Severe protein-calorie malnutrition Current Visit: Yes Status: Acute (4) Chronic pain Current Visit: Yes Status: Acute (5) Hypotension Current Visit: Yes Status: Chronic (6) Quadriplegia Current Visit: Yes Status: Chronic (7) DVT prophylaxis Current Visit: Yes Status: Acute - Time Spent with Patient Total time spent is greater than 50% in coordination of care (as documented) at patient's floor/unit and/or counseling patient: Internal Medicine: Result - Labs CBC & Chem 7: 07/22/19 01:17 07/22/19 01:17 Labs: Short CBC 07/21/19 07/22/19 Range/Units 09:21 01:17 WBC 6.2 5.6 (4.3-11.1) K/mcL Hgb 12.4 L D 9.8 L D (12.9-16.9) g/dL Hct 41.4 32.5 L (37.5-50.1) % Plt Count 236 212 (140-400) K/mcL Neutrophils # 4.8 3.7 (1.6-8.9) K/mcL BMP 07/21/19 07/22/19 09:21 01:17 Sodium 136 134 L Potassium 4.4 3.4 L Chloride 101 102 Carbon Dioxide 29 24 BUN 23 H 18 Creatinine 0.87 0.56 L Glucose 126 H 83 Calcium 10.6 H 9.4 Consult Discharge Plan - Plan Referrals: Judd Bautista MD [Primary Care Provider] - (1) Osteomyelitis Qualifiers: Osteomyelitis type: unspecified type Osteomyelitis location: femur Laterality: left Qualified Code(s): M86.9 - Osteomyelitis, unspecified (2) Stage 4 decubitus ulcer Qualifiers: Pressure injury location: contiguous region involving buttock and hip Laterality: left Qualified Code(s): L89.44 - Pressure ulcer of contiguous site of back, buttock and hip, stage 4 (4) Chronic pain Qualifiers: Chronic pain type: other chronic pain Qualified Code(s): G89.29 - Other chronic pain (5) Hypotension Qualifiers: Hypotension type: unspecified hypotension type Qualified Code(s): I95.9 - Hypotension, unspecified
[2019-07-22] MEDS ORDERED: Lactulose 200 GM, Sodium Chloride IRRigation 700 ML RC PRN (09:00)
[2019-07-22] MEDS: Cefepime HCl 2,000 MG in 0.9 % Sodium Chloride Mini Bag 100 ML IVPB SCH ×2 (09:01→21:26)
[2019-07-22] MEDS: Baclofen 10 MG TABLET PO SCH ×2 (09:02→15:59)
[2019-07-22] MEDS: Sennosides/Docusate Sodium TABLET PO SCH (09:02)
[2019-07-22] MEDS: Gabapentin 300 MG CAPSULE PO SCH (09:02)
[2019-07-22] MEDS: ALPRAZolam 0.5 MG TABLET PO SCH ×2 (09:02→15:59)
[2019-07-22] MEDS: Sucralfate 1 GM TABLET PO SCH ×2 (09:03→21:14)
[2019-07-22] MEDS: Colistin (Colistimethate) 150 MG in 0.9 % Sodium Chloride 50 ML IVPB SCH ×2 (10:43→21:25)
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
[2019-07-22] MEDS ORDERED: *HR* OxyCODONE Immed Rel 5 MG TABLET PO PRN ×2 (13:47→16:25)
--- NOTE | 2019-07-22 14:07 | Discharge Summary ---
Orders not resulted at time of discharge: Pending orders 07/21/19 09:27 Culture,Anaerobic [] Stat Culture,Wound,with Gram Stain [] Stat 07/21/19 10:49 Blood Culture [Culture,Blood] [] Stat Date of Encounter: 07/22/19 Time of Encounter: 13:56 - Discharge Diagnosis (1) Osteomyelitis Status: Acute Qualifiers: Osteomyelitis type: unspecified type Osteomyelitis location: femur Laterality: left Qualified Code(s): M86.9 - Osteomyelitis, unspecified (2) Stage 4 decubitus ulcer Status: Acute Qualifiers: Pressure injury location: contiguous region involving buttock and hip Laterality: left Qualified Code(s): L89.44 - Pressure ulcer of contiguous site of back, buttock and hip, stage 4 (3) Severe protein-calorie malnutrition Status: Acute (4) Chronic pain Status: Acute Qualifiers: Chronic pain type: other chronic pain Qualified Code(s): G89.29 - Other chronic pain (5) Hypotension Status: Chronic Qualifiers: Hypotension type: unspecified hypotension type Qualified Code(s): I95.9 - Hypotension, unspecified (6) Quadriplegia Status: Chronic (7) DVT prophylaxis Status: Acute Hospital course: Mr. Alvarado is a 43 year old male - Time Spent with Patient Total time spent providing and/or coordinating discharge services: - Discharge Medications Prescriptions: No Action Zinc Sulfate 220 mg PO DAILY Sucralfate [Carafate] 1 gm PO BID Multivit,Th Iron,Other Min [Thera-M] 1 tab PO DAILY Budesonide Neb [Pulmicort Neb] 0.5 mg IH BIDR Potassium Chloride [K-Tab ER] 20 meq PO DAILY Polyethylene Glycol 3350 [MiraLAX] 17 gm PO BID Ipratropium/Albuterol Neb [Duoneb] 3 ml IH Q4HR PRN PRN Reason: Shortness Of Breath Ibuprofen [Motrin] 600 mg PO TID PRN PRN Reason: Pain Ferrous Sulfate [Iron] 325 mg PO BID Dicyclomine Hcl [Bentyl] 20 mg PO TID Cetirizine HCl [24Hour Allergy] 10 mg PO DAILY Baclofen [Lioresal] 20 mg PO TID Lactobacillus Acidophilus [Acidophilus] 1 cap PO DAILY ALPRAZolam [Xanax 0.5 MG Tablet] 0.5 mg PO TID Amino Acids/Protein Hydrolys [Pro-Stat Awc Liquid] 30 ml PO BID Dextran 70/Hypromellose [Natural Balance Tears Eye Drop] 1 drop BOTH EYES QID PRN PRN Reason: Dry Eyes Lactulose [Enulose] 20 gm PO DAILY Linaclotide [Linzess] 290 mcg PO DAILY Magnesium Hydroxide [Milk of Magnesia] 2,400 mg PO DAILY Midodrine HCl 10 mg PO DAILY PRN PRN Reason: SBP<100 Oxycodone HCl 10 mg PO Q4H PRN PRN Reason: Pain Sennosides/Docusate Sodium [Senna Plus 8.6-50 mg Tablet] 2 each PO DAILY Solifenacin Succinate [Vesicare] 5 mg PO DAILY Cefepime HCl/Dextrose, Iso-Osm [Cefepime 2 gm Injection] 2 gm IV BID 42 Days #84 mls Colistin (Colistimethate Na) [Colistimethate] 150 mg IV BID 42 Days #84 vial Trolamine Salicylate/Aloe Vera [Aspercreme 10%] 1 appl TP TID PRN #1 tube PRN Reason: See Comments Miconazole 2% cream [Marce Antifungal] 1 appl TP BID #1 tube Sodium Hypochlorite 0.25% [Dakin's (Half-Strength 0.25%)] 1 appl TP BID #1 bottle Gentamicin Oint [Garamycin] 1 appl TP DAILY #1 tube Collagenase Oint [Santyl] 1 appl TP DAILY #1 tube Gabapentin [Neurontin] 1,200 mg PO TID Omeprazole [PriLOSEC] 40 mg PO DAILY Oxybutynin Chloride [Ditropan XL] 15 mg PO BID Vancomycin [Vancocin] 750 mg IV BID Methocarbamol [Robaxin] 500 mg PO Q8HR PRN PRN Reason: Muscle Spasm Home Medications: ALPRAZolam [Xanax 0.5 MG Tablet] 0.5 mg PO TID 09/07/18 [History] Baclofen [Lioresal] 20 mg PO TID 09/07/18 [History] Budesonide Neb [Pulmicort Neb] 0.5 mg IH BIDR 09/07/18 [History] Cetirizine HCl [24Hour Allergy] 10 mg PO DAILY 09/07/18 [History] Dicyclomine Hcl [Bentyl] 20 mg PO TID 09/07/18 [History] Ferrous Sulfate [Iron] 325 mg PO BID 09/07/18 [History] Ibuprofen [Motrin] 600 mg PO TID PRN 09/07/18 [History] Ipratropium/Albuterol Neb [Duoneb] 3 ml IH Q4HR PRN 09/07/18 [History] Lactobacillus Acidophilus [Acidophilus] 1 cap PO DAILY 09/07/18 [History] Multivit,Th Iron,Other Min [Thera-M] 1 tab PO DAILY 09/07/18 [History] Polyethylene Glycol 3350 [MiraLAX] 17 gm PO BID 09/07/18 [History] Potassium Chloride [K-Tab ER] 20 meq PO DAILY 09/07/18 [History] Sucralfate [Carafate] 1 gm PO BID 09/07/18 [History] Zinc Sulfate 220 mg PO DAILY 09/07/18 [History] Methocarbamol [Robaxin] 500 mg PO Q8HR PRN 04/14/19 [History] Amino Acids/Protein Hydrolys [Pro-Stat Awc Liquid] 30 ml PO BID 07/15/19 [History] Dextran 70/Hypromellose [Natural Balance Tears Eye Drop] 1 drop BOTH EYES QID PRN 07/15/19 [History] Lactulose [Enulose] 20 gm PO DAILY 07/15/19 [History] Linaclotide [Linzess] 290 mcg PO DAILY 07/15/19 [History] Magnesium Hydroxide [Milk of Magnesia] 2,400 mg PO DAILY 07/15/19 [History] Midodrine HCl 10 mg PO DAILY PRN 07/15/19 [History] Oxycodone HCl 10 mg PO Q4H PRN 07/15/19 [History] Sennosides/Docusate Sodium [Senna Plus 8.6-50 mg Tablet] 2 each PO DAILY 07/15/19 [History] Solifenacin Succinate [Vesicare] 5 mg PO DAILY 07/15/19 [History] Cefepime HCl/Dextrose, Iso-Osm [Cefepime 2 gm Injection] 2 gm IV BID 42 Days #84 mls 07/19/19 [Rx] Colistin (Colistimethate Na) [Colistimethate] 150 mg IV BID 42 Days #84 vial 07/19/19 [Rx] Collagenase Oint [Santyl] 1 appl TP DAILY #1 tube 07/20/19 [Rx] Gentamicin Oint [Garamycin] 1 appl TP DAILY #1 tube 07/20/19 [Rx] Miconazole 2% cream [Marce Antifungal] 1 appl TP BID #1 tube 07/20/19 [Rx] Sodium Hypochlorite 0.25% [Dakin's (Half-Strength 0.25%)] 1 appl TP BID #1 bottle 07/20/19 [Rx] Trolamine Salicylate/Aloe Vera [Aspercreme 10%] 1 appl TP TID PRN #1 tube 07/20/19 [Rx] Gabapentin [Neurontin] 1,200 mg PO TID 07/22/19 [History] Omeprazole [PriLOSEC] 40 mg PO DAILY 07/22/19 [History] Oxybutynin Chloride [Ditropan XL] 15 mg PO BID 07/22/19 [History] Vancomycin [Vancocin] 750 mg IV BID 07/22/19 [History] Allergies/Adverse Reactions: Allergy/AdvReac Type Severity Reaction Status Date / Time honey Allergy See Verified 07/21/19 23:41 Comments Date of admission: 07/21/19 10:23 Primary care physician: Judd Bautista MD Consults: 07/21/19 09:52 Consult to Infectious Diseases [CONS] Stat Consulting Provider: Infectious Disease Rhianna Reason for Consult: multiresistent bacteria infection in wound, oesteomylitis Call Completed: No 07/21/19 12:46 Consult to Nutrition [CONS] Routine Comment: unable to keep up with bodily demands Consulting Provider: NUTRITION Reason for Dietary Consult: Other Consult to Wound Care [CONS] Routine Reason for Consult: wound on coxxyx Call Completed: No 07/21/19 16:49 Consult to Chemical Plant Technical Director [CONS] Routine Reason for SW Consult: Patient from [place] - Constitutional Vitals: Temp Pulse Resp BP Pulse Ox 97.4 F L 67 16 87/54 99 07/22/19 07:11 07/22/19 10:39 07/22/19 10:39 07/22/19 10:39 07/22/19 10:39 - Patient Status Condition: Fair - Discharge Instructions Follow Up With: Judd Bautista MD [Primary Care Provider] -
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
[2019-07-22] MEDS: 0.9 % Sodium Chloride 1,000 ML IVC SCH (18:25)
[2019-07-22] MEDS: *HR* OxyCODONE ER (12 HR) 10 MG TABLET PO SCH (21:05)
[2019-07-22] MEDS: Gabapentin 400 MG CAPSULE PO SCH (21:14)
[2019-07-22] MEDS ORDERED: Acetaminophen IV 1,000 MG/100 ML INFUS..BTL IVPB ONE (23:19)
[2019-07-23] MEDS: 0.9 % Sodium Chloride 1,000 ML IVC SCH (02:34)
[2019-07-23 03:42] LABS: Basophils % 0.5 %; Eosinophils # 0.3 K/mcL (0.0-0.6); Eosinophils % 5.4 %; Immature Granulocytes % 0.2 % (0-4); Lymphocytes # 0.9 K/mcL (0.6-4.6); Lymphocytes % 16.8 %; Mean Corpuscular HGB Conc 30.3 g/dL (31.6-35.5); Mean Corpuscular Hemoglobin 28.9 pg (28.0-33.3); Mean Corpuscular Volume 95.4 fL (83.0-100.0); Mean Platelet Volume 9.3 fL (9.4-12.4); Monocytes # 0.4 K/mcL (0.0-1.3); Monocytes % 7.9 %; Neutrophils # 3.8 K/mcL (1.6-8.9); Platelet Count 202 K/mcL (140-400); Red Blood Count 3.46 M/mcL (4.19-5.50); Red Cell Distribution Width 16.6 % (11.5-14.5); Segmented Neutrophils % 69.2 %; White Blood Count 5.5 K/mcL (4.3-11.1)
[2019-07-23 04:01] LABS: BUN/Creatinine Ratio 23 (6-26); Blood Urea Nitrogen 15 mg/dL (6-20); Calcium 9.8 mg/dL (8.6-10.3); Carbon Dioxide 24 mEq/L (23-29); Chloride 107 mEq/L (98-107); Glucose 78 mg/dL (70-105); Osmolality,Calculated 282 (280-300); Potassium 4.1 mEq/L (3.5-5.1); Sodium 136 mEq/L (136-145); eGFR For African Americans > 60 (> 60); eGFR For Non-African Americans > 60 (> 60)
[2019-07-23] MEDS: *HR* Heparin 5,000 UNIT/ML VIAL SQ SCH ×3 (04:07→22:47)
[2019-07-23] MEDS: *HR* OxyCODONE ER (12 HR) 10 MG TABLET PO SCH (05:24)
[2019-07-23] MEDS: Sucralfate 1 GM TABLET PO SCH ×2 (09:21→23:46)
[2019-07-23] MEDS: Gabapentin 400 MG CAPSULE PO SCH ×4 (09:22→22:48)
[2019-07-23] MEDS: Sennosides/Docusate Sodium TABLET PO SCH (09:24)
[2019-07-23] MEDS: Colistin (Colistimethate) 150 MG in 0.9 % Sodium Chloride 50 ML IVPB SCH ×2 (10:08→22:53)
[2019-07-23] MEDS: Cefepime HCl 2,000 MG in 0.9 % Sodium Chloride Mini Bag 100 ML IVPB SCH ×2 (10:08→22:49)
[2019-07-23] MEDS ORDERED: *HR* Propofol 200 MG/20 ML VIAL IVP ONE (10:56)
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
[2019-07-23] MEDS ORDERED: Lidocaine -MPF 2% 2 ML VIAL ONE (11:13)
[2019-07-23] MEDS ORDERED: *HR* PHENYLEPHRINE 1,000 MCG/10 ML SYRINGE IVP ONE (11:16)
--- NOTE | 2019-07-23 11:39 | Anesthesia Evaluation PreOp ---
Date of Encounter: 07/23/19 Time of Encounter: 11:37 - Past History Planned Operation: PEG Tube Placement Cardiac History: Denies any Significant Hx Pulmonary History: Smoker (2 years), Other (tracheostomy with supplemental O2--denies vent support) SERVICE DIRECTOR History: Other (spastic quadriplegia) Other Medical History: Hepatic (fatty liver), GERD Anesthesia History: No Prior Anesthetic Complications, Past Anesthesia Alcohol Use: none Drug use: none Medications and Allergies ALPRAZolam [Xanax 0.5 MG Tablet] 0.5 mg PO TID 09/07/18 [History] Baclofen [Lioresal] 20 mg PO TID 09/07/18 [History] Budesonide Neb [Pulmicort Neb] 0.5 mg IH BIDR 09/07/18 [History] Cetirizine HCl [24Hour Allergy] 10 mg PO DAILY 09/07/18 [History] Dicyclomine Hcl [Bentyl] 20 mg PO TID 09/07/18 [History] Ferrous Sulfate [Iron] 325 mg PO BID 09/07/18 [History] Ibuprofen [Motrin] 600 mg PO TID PRN 09/07/18 [History] Ipratropium/Albuterol Neb [Duoneb] 3 ml IH Q4HR PRN 09/07/18 [History] Lactobacillus Acidophilus [Acidophilus] 1 cap PO DAILY 09/07/18 [History] Multivit,Th Iron,Other Min [Thera-M] 1 tab PO DAILY 09/07/18 [History] Polyethylene Glycol 3350 [MiraLAX] 17 gm PO BID 09/07/18 [History] Potassium Chloride [K-Tab ER] 20 meq PO DAILY 09/07/18 [History] Sucralfate [Carafate] 1 gm PO BID 09/07/18 [History] Zinc Sulfate 220 mg PO DAILY 09/07/18 [History] Methocarbamol [Robaxin] 500 mg PO Q8HR PRN 04/14/19 [History] Amino Acids/Protein Hydrolys [Pro-Stat Awc Liquid] 30 ml PO BID 07/15/19 [Histor y] Dextran 70/Hypromellose [Natural Balance Tears Eye Drop] 1 drop BOTH EYES QID PRN 07/15/19 [History] Lactulose [Enulose] 20 gm PO DAILY 07/15/19 [History] Linaclotide [Linzess] 290 mcg PO DAILY 07/15/19 [History] Magnesium Hydroxide [Milk of Magnesia] 2,400 mg PO DAILY 07/15/19 [History] Midodrine HCl 10 mg PO DAILY PRN 07/15/19 [History] Oxycodone HCl 10 mg PO Q4H PRN 07/15/19 [History] Sennosides/Docusate Sodium [Senna Plus 8.6-50 mg Tablet] 2 each PO DAILY 07/15/19 [History] Solifenacin Succinate [Vesicare] 5 mg PO DAILY 07/15/19 [History] Cefepime HCl/Dextrose, Iso-Osm [Cefepime 2 gm Injection] 2 gm IV BID 42 Days #84 mls 07/19/19 [Rx] Colistin (Colistimethate Na) [Colistimethate] 150 mg IV BID 42 Days #84 vial 07/19/19 [Rx] Collagenase Oint [Santyl] 1 appl TP DAILY #1 tube 07/20/19 [Rx] Gentamicin Oint [Garamycin] 1 appl TP DAILY #1 tube 07/20/19 [Rx] Miconazole 2% cream [Marce Antifungal] 1 appl TP BID #1 tube 07/20/19 [Rx] Sodium Hypochlorite 0.25% [Dakin's (Half-Strength 0.25%)] 1 appl TP BID #1 bottle 07/20/19 [Rx] Trolamine Salicylate/Aloe Vera [Aspercreme 10%] 1 appl TP TID PRN #1 tube 07/20/19 [Rx] Gabapentin [Neurontin] 1,200 mg PO TID 07/22/19 [History] Omeprazole [PriLOSEC] 40 mg PO DAILY 07/22/19 [History] Oxybutynin Chloride [Ditropan XL] 15 mg PO BID 07/22/19 [History] Vancomycin [Vancocin] 750 mg IV BID 07/22/19 [History] Allergy/AdvReac Type Severity Reaction Status Date / Time honey Allergy See Verified 07/21/19 23:41 Comments - Meds/Allergy Pre-op Review Medications Reviewed: Yes Allergies Reviewed: Yes Beta Blockers on Current Med List: No Anesthesia Results - Labs 07/23/19 03:25 07/23/19 03:25 - Imaging EKG: report reviewed (07/15/2019 Sinus tachycardia) Anesthesia Exam Vital Signs/O2 Sat, Most Current Temp Pulse Resp BP Pulse Ox 98.0 F 55 16 135/80 98 07/23/19 10:49 07/23/19 10:49 07/23/19 10:49 07/23/19 10:49 07/23/19 10:49 Height: 6'/1.83m Weight: 158 lbs/72 kg NPO (# of Hours): 8 Pain Scale: 0 Pain Scale Used: Numeric (1 - 10) - HEENT Pupil (Motor): EOMI Mallampati: Trach Teeth: Normal Oral Opening: Greater than 3 - SERVICE DIRECTOR LOC: Oriented SERVICE DIRECTOR Motor: Normal Face, Deficit RUE (spastic quadriplegia), Deficit LUE (spastic quadriplegia), Deficit RLE (spastic quadriplegia), Deficit LLE (spastic quadriplegia) SERVICE DIRECTOR Sensory: Normal: Face, Deficit: RUE (spastic quadriplegia), LUE (spastic quadriplegia), RLE (spastic quadriplegia), LLE (spastic quadriplegia) - Cardiac Rhythm: Regular Murmur: None - Pulmonary Breath Sounds: bilateral Clear (decreased BS) Respiratory Effort: Symmetrical Anesthesia Assess/Plan ASA Score: 3 Level of consciousness: Cooperative, Oriented, Tranquil Anesthetic Plan: General Monitoring Plan: Standard Monitors Recovery Plan: PACU
[2019-07-23] MEDS ORDERED: Dexamethasone 4 MG/ML VIAL ONE (11:46)
[2019-07-23] MEDS ORDERED: Ondansetron 4 MG/2 ML VIAL ONE (11:46)
--- NOTE | 2019-07-23 13:32 | Anesthesia Evaluation Post Op ---
Date of Encounter: 07/23/19 Time of Encounter: 13:29 - Vital Signs Vital Signs: vss - Lungs Lungs: Clear Ascult./Percussion - Airway Airway: Non-obstructed - Cardiovascular Baseline Rhythm - Mental Status Mental Status: Asleep with brisk response to light stimulation - Pain Pain Scale used: Nabeel (Faces) - Nausea Vomiting Nausea Vomiting: Not Present - Hydration Hydration: Sauer catheter (draining) - Discharge PostOp Status: Transfer Patient to floor
[2019-07-23] MEDS ORDERED: *HR* OxyCODONE Immed Rel 5 MG TABLET PO ONE (14:42)
--- NOTE | 2019-07-23 15:13 | Pain Management Consultation ---
Date of Encounter: 07/23/19 Time of Encounter: 15:09 Assessment and Plan (1) Leg pain, bilateral Current Visit: Yes Status: Chronic The patient routinely takes oxycodone immediate release 40 mg every 6 hours with an additional 10 mg immediate release every 4 hours when necessary. He has taken oxycodone for an extended period of time, a period f several years. He therefore meets the clinical definition of tolerance to oxycodone. I suggested to him opioid rotation. This would be a strategy of eating him a different long-acting medication to circumvent the tolerance to oxycodone. He is initially leery of the idea because at one point in the past he was on a fentanyl patch in addition to oxycodone and morphine, and he tells me that this was just too much medication for him at that time. I understand his concern, but the dose could be started low so as to avoid over medicating the patient. For example, his total daily dose of 160 mg of oxycodone converts to 120 mg of oral morphine, using a 50% cross tolerance reduction factor. He could be converted from the oxycodone every 6 hours to morphine 40 mg extended release every 8 hours. The 10 mg oxyIR doses could be continued for breakthrough pain. Another example would be to stop the oxyIR 40 mg doses and use a 25 mcg/hr fentanyl patch with oxyIR doses for breakthrough pain. The patient is willing to try opioid rotation. Any changes should be monitored very closely, and the most conservative doses should be used. The assessment and plan as outlined above was discussed with the patient and/or family members who expressed understanding and agreement. All questions were ans wered. History of Present Illness Chief complaint: leg pain HPI: Mr. Alvarado is a 43 year old male who is a quadriplegic who has a tracheostomy and a PEG tube. The patient has chronic pain in the legs and his neck. He describes the pain as an aching and grinding sensation. He denies shooting or tingling pain in his legs or arms. Typical pain score is 7/10 despite oxycodone immediate release every 6 hours and an additional 10 mg every 4 hours as needed. The pain makes it hard for the patient to find a comfortable position as well as sleep. Pain seems to be present all throughout the course of each day. He has used oxycodone for several years now. Pain of this nature has been present for at least the past 5 years. Past Med Surg Social Fam HX - Past Medical History Medical history: atrial fibrillation, COPD, DVT, GERD, pulmonary embolus, other Additional medical history: quadriplegia. muscle weakness. fatty liver. claudio matitis. constipation. MRSA Psychiatric history: anxiety, depression - Past Surgical History Surgical History: cholecystectomy, colostomy, tracheostomy, other (PEG tube, nephrostomy tube) Additional surgical history: peg tube. nephrostomy. suprpubic catheter. trach. wound debridement - Social History Smoking Status: Never smoker Packs per day: 1 Smokeless Tobacco Status: No Alcohol use: none Drug use: none - Family History Mother Hx Family Cardiac Disorders: No Father Hx Family Cancer: Yes Medications and Allergies ALPRAZolam [Xanax 0.5 MG Tablet] 0.5 mg PO TID 09/07/18 [History] Baclofen [Lioresal] 20 mg PO TID 09/07/18 [History] Budesonide Neb [Pulmicort Neb] 0.5 mg IH BIDR 09/07/18 [History] Cetirizine HCl [24Hour Allergy] 10 mg PO DAILY 09/07/18 [History] Dicyclomine Hcl [Bentyl] 20 mg PO TID 09/07/18 [History] Ferrous Sulfate [Iron] 325 mg PO BID 09/07/18 [History] Ibuprofen [Motrin] 600 mg PO TID PRN 09/07/18 [History] Ipratropium/Albuterol Neb [Duoneb] 3 ml IH Q4HR PRN 09/07/18 [History] Lactobacillus Acidophilus [Acidophilus] 1 cap PO DAILY 09/07/18 [History] Multivit,Th Iron,Other Min [Thera-M] 1 tab PO DAILY 09/07/18 [History] Polyethylene Glycol 3350 [MiraLAX] 17 gm PO BID 09/07/18 [History] Potassium Chloride [K-Tab ER] 20 meq PO DAILY 09/07/18 [History] Sucralfate [Carafate] 1 gm PO BID 09/07/18 [History] Zinc Sulfate 220 mg PO DAILY 09/07/18 [History] Methocarbamol [Robaxin] 500 mg PO Q8HR PRN 04/14/19 [History] Amino Acids/Protein Hydrolys [Pro-Stat Awc Liquid] 30 ml PO BID 07/15/19 [History] Dextran 70/Hypromellose [Natural Balance Tears Eye Drop] 1 drop BOTH EYES QID PRN 07/15/19 [History] Lactulose [Enulose] 20 gm PO DAILY 07/15/19 [History] Linaclotide [Linzess] 290 mcg PO DAILY 07/15/19 [History] Magnesium Hydroxide [Milk of Magnesia] 2,400 mg PO DAILY 07/15/19 [History] Midodrine HCl 10 mg PO DAILY PRN 07/15/19 [History] Oxycodone HCl 10 mg PO Q4H PRN 07/15/19 [History] Sennosides/Docusate Sodium [Senna Plus 8.6-50 mg Tablet] 2 each PO DAILY 07/15/19 [History] Solifenacin Succinate [Vesicare] 5 mg PO DAILY 07/15/19 [History] Cefepime HCl/Dextrose, Iso-Osm [Cefepime 2 gm Injection] 2 gm IV BID 42 Days #84 mls 07/19/19 [Rx] Colistin (Colistimethate Na) [Colistimethate] 150 mg IV BID 42 Days #84 vial 07/19/19 [Rx] Collagenase Oint [Santyl] 1 appl TP DAILY #1 tube 07/20/19 [Rx] Gentamicin Oint [Garamycin] 1 appl TP DAILY #1 tube 07/20/19 [Rx] Miconazole 2% cream [Marce Antifungal] 1 appl TP BID #1 tube 07/20/19 [Rx] Sodium Hypochlorite 0.25% [Dakin's (Half-Strength 0.25%)] 1 appl TP BID #1 bottle 07/20/19 [Rx] Trolamine Salicylate/Aloe Vera [Aspercreme 10%] 1 appl TP TID PRN #1 tube 07/20/19 [Rx] Gabapentin [Neurontin] 1,200 mg PO TID 07/22/19 [History] Omeprazole [PriLOSEC] 40 mg PO DAILY 07/22/19 [History] Oxybutynin Chloride [Ditropan XL] 15 mg PO BID 07/22/19 [History] Vancomycin [Vancocin] 750 mg IV BID 07/22/19 [History] Allergy/AdvReac Type Severity Reaction Status Date / Time honey Allergy See Verified 07/21/19 23:41 Comments Review of Systems - Constitutional Constitutional ROS IM: no photophobia, no phonophobia, no daytime sleepiness, no fever(s), no stops breathing during sleep - EENT Nose, mouth and throat: no headache(s), no neck pain, no neck trauma - Cardiovascular Cardiovascular ROS: no chest pain, no leg edema, no lightheadedness - Respiratory Respiratory: no pain on inspiration, no pain with cough - Gastrointestinal Gastrointestinal: no abdominal pain, no constipation, no diarrhea, no heartburn - Genitourinary Genitourinary ROS: no difficulty urinating, no flank pain, no urinary hesitancy - Musculoskeletal Musculoskeletal ROS: muscle weakness, no numbness, no radiating pain into limb, no tingling - Integumentary Integumentary: no erythema, no lesions, no swelling - Neurological Neurological ROS: no abnormal gait, no behavioral changes, no focal weakness, no radicular pain - Psychiatric Psychiatric general: no anxiety, no confusion, no depression - Hematologic/Lymphatic Hematologic/Lymphatic pediatric: no easy bleeding, no easy bruising Physical Exam Initial Vital Signs Temp Pulse Resp BP Pulse Ox 98.2 F 91 18 73/59 93 07/21/19 09:02 07/21/19 09:02 07/21/19 09:02 07/21/19 09:02 07/21/19 09:02 - Additional Findings EYES:: pupils equal and round, no myosis. SKIN:: no areas of echymoses or petechiae CARDIOVASCULAR:: regular rate and rhythm, no murmurs PULMONARY:: Quiet, normal respiratory pattern. GASTROINTESTINAL:: soft. MUSCULOSKELETAL Flaccid musculature in bilateral lower extremities. Contraction deformities left and right elbows. NEUROLOGIC SENSATION:: mild hypesthesia is noted in lower extremity dermatomes. PSYCHIATRIC:: ORIENTATION:: awake and alert. INSIGHT:: good awareness of illness. AFFECT:: pleasant. Radiology Images Viewed By Me:: Lumbar MRI shows drastically preserved disc height for age. There is no foraminal stenosis or central canal stenosis. Labs reviewed during this admission : Platelet count normal. Renal function normal. I have reviewed and agree with information documented in the scribed documentation, ROS, patient medications, allergies, medical history, surgical history, social history, and family history. Results - Labs 07/23/19 03:25 07/23/19 03:25 Abnormal lab results RBC 3.46 M/mcL (4.19-5.50) L 07/23/19 03:25 Hgb 10.0 g/dL (12.9-16.9) L 07/23/19 03:25 Hct 33.0 % (37.5-50.1) L 07/23/19 03:25 MCHC 30.3 g/dL (31.6-35.5) L 07/23/19 03:25 RDW 16.6 % (11.5-14.5) H 07/23/19 03:25 MPV 9.3 fL (9.4-12.4) L 07/23/19 03:25 Sodium 134 mEq/L (136-145) L 07/22/19 01:17 Potassium 3.4 mEq/L (3.5-5.1) L 07/22/19 01:17 BUN 23 mg/dL (6-20) H 07/21/19 09:21 Creatinine 0.66 mg/dL (0.70-1.30) L 07/23/19 03:25 BUN/Creatinine Ratio 32 (6-26) H 07/22/19 01:17 Glucose 126 mg/dL (70-105) H 07/21/19 09:21 Calculated Osmolality 279 (280-300) L 07/22/19 01:17 Calcium 10.6 mg/dL (8.6-10.3) H 07/21/19 09:21 Vancomycin Trough 17 mcg/mL (5-10) H 07/21/19 21:00 Diabetes panel 07/23/19 Range/Units 03:25 Sodium 136 (136-145) mEq/L Potassium 4.1 (3.5-5.1) mEq/L Chloride 107 (98-107) mEq/L Carbon Dioxide 24 (23-29) mEq/L BUN 15 (6-20) mg/dL Creatinine 0.66 L (0.70-1.30) mg/dL Glucose 78 (70-105) mg/dL Calcium 9.8 (8.6-10.3) mg/dL Calcium panel 07/23/19 Range/Units 03:25 Calcium 9.8 (8.6-10.3) mg/dL Pituitary panel 07/23/19 Range/Units 03:25 Sodium 136 (136-145) mEq/L Potassium 4.1 (3.5-5.1) mEq/L Chloride 107 (98-107) mEq/L Carbon Dioxide 24 (23-29) mEq/L BUN 15 (6-20) mg/dL Creatinine 0.66 L (0.70-1.30) mg/dL Glucose 78 (70-105) mg/dL Calcium 9.8 (8.6-10.3) mg/dL Adrenal panel 07/23/19 Range/Units 03:25 Sodium 136 (136-145) mEq/L Potassium 4.1 (3.5-5.1) mEq/L Chloride 107 (98-107) mEq/L Carbon Dioxide 24 (23-29) mEq/L BUN 15 (6-20) mg/dL Creatinine 0.66 L (0.70-1.30) mg/dL Glucose 78 (70-105) mg/dL Calcium 9.8 (8.6-10.3) mg/dL All other labs normal. Consult Discharge Plan - Plan Referrals: Judd Bautista MD [Primary Care Provider] -
[2019-07-23 15:40] LABS: Adenovirus Not Detected (Not Detect); Bordetella Pertussis Not Detected (Not Detect); Chlamydophila pneumoniae Not Detected (Not Detect); Coronavirus 229E Not Detected (Not Detect); Coronavirus HKU1 Not Detected (Not Detect); Coronavirus NL63 Not Detected (Not Detect); Coronavirus OC43 Not Detected (Not Detect); Human Metapneumovirus Not Detected (Not Detect); Human Rhinovirus/Enterovirus Not Detected (Not Detect); Influenza A Subtype 2009 H1 Not Detected (Not Detect); Influenza A Untypeable Not Detected (Not Detect); Influenza B Not Detected (Not Detect); Mycoplasma pneumoniae Not Detected (Not Detect); Parainfluenza Virus 1 Not Detected (Not Detect); Parainfluenza Virus 2 Not Detected (Not Detect); Parainfluenza Virus 3 Not Detected (Not Detect); Parainfluenza Virus 4 Not Detected (Not Detect); Respiratory Syncytial Virus Not Detected (Not Detect)
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
[2019-07-23] MEDS ORDERED: Vancomycin 500 MG in 0.9 % Sodium Chloride Mini Bag 100 ML IVPB SCH (16:00)
--- NOTE | 2019-07-23 17:22 | Acute Care Surgery Event Note ---
Date of Encounter: 07/23/19 Time of Encounter: 12:00 Pt underwent PEG placement without incident. PEG can be used for TF in 24 hours. Pt is not dysphagic and can continue to eat, drink and take meds PO. Routine PEG care. Thank you for allowing us to participate in this patient's care. Surgery will sign off.
[2019-07-23] MEDS: Morphine Sulfate ER (12 HR) 15 MG TABLET.ER PO SCH (17:39)
[2019-07-23] MEDS: Methocarbamol 500 MG TABLET PO PRN (22:48)
[2019-07-24] MEDS: Morphine Sulfate ER (12 HR) 15 MG TABLET.ER PO SCH ×3 (00:03→15:53)
[2019-07-24] MEDS: Gentamicin Oint 15 GM TUBE TP SCH ×2 (01:00→16:33)
[2019-07-24] MEDS: *HR* Heparin 5,000 UNIT/ML VIAL SQ SCH ×3 (05:35→21:54)
[2019-07-24] MEDS: Vancomycin 500 MG in 0.9 % Sodium Chloride Mini Bag 100 ML IVPB SCH ×2 (05:37→18:10)
[2019-07-24] MEDS: Sucralfate 1 GM TABLET PO SCH ×2 (08:15→21:54)
[2019-07-24] MEDS: Sennosides/Docusate Sodium TABLET PO SCH (08:15)
[2019-07-24] MEDS: Gabapentin 400 MG CAPSULE PO SCH ×3 (08:15→21:54)
[2019-07-24] MEDS: Colistin (Colistimethate) 150 MG in 0.9 % Sodium Chloride 50 ML IVPB SCH ×2 (08:23→22:24)
[2019-07-24] MEDS: Cefepime HCl 2,000 MG in 0.9 % Sodium Chloride Mini Bag 100 ML IVPB SCH ×2 (09:47→21:54)
[2019-07-24] MEDS: *HR* OxyCODONE Immed Rel 5 MG TABLET PO PRN ×2 (13:28→21:55)
[2019-07-24] MEDS: Methocarbamol 500 MG TABLET PO PRN ×2 (13:50→23:12)
--- NOTE | 2019-07-24 15:48 | Internal Med Progress Note ---
<Bobby Uribe - Last Filed: 07/24/19 15:54> Hospitalist Progress Note - Encounter Date of Encounter: 07/24/19 Time of Encounter: 09:45 - Subjective Interval History: Patient is resting in bed at time of examination. He says that his pain control has not been optimal over the past 24 hours. He does say that the current dose of his medication seems to be helping quite a bit, however it seems to wear off about an hour and a half before his next dose is due. He does say that the breakthrough medication does not seem to be as helpful as it should be. In addition of this, he says that he has been hungry and would like to beats to begin if possible. He has had no nausea, vomiting, headache, fever, chills. He has no other acute complaints. - Exam Vitals: Temp Pulse Resp BP Pulse Ox 98.5 F 55 16 121/78 98 07/24/19 12:55 07/24/19 12:55 07/24/19 12:55 07/24/19 12:55 07/24/19 04:00 Exam: Gen: Vitals noted. No acute distress. Cachectic appearing Eyes: anicteric sclerae, moist conjunctivae HENT: Atraumatic; oropharynx clear with moist mucous membranes Cardiac: RRR, no murmur, +S1/S2 Pulmonary: CTA bilaterally, no wheezes, rales or rhonchi, equal chest expansion Abdomen: soft, PEG tube in place, well-appearing skin surrounding. Abdomen nontender MSK: Extremities are thin, dysmorphic. He is paraplegic with additional weakness and severe joint disturbances in the upper extremities including his wrists is well-appearing Extremities: no BLE edema, nontender calf, no cyanosis or clubbing Skin: His sacrum and coccyx or not examined at this time. Superficial anterior skin appears normal without rash or ulcer Psych: Flat affect, appropriate mood. A&Ox3 - Assessment and Plan (1) Osteomyelitis Current Visit: Yes Status: Acute Assessment and Plan: Osteomyelitis of the left hip as well as the sacrum with multiple MDRO organisms Patient currently managed on IV vancomycin, cefepime, colistin He does have very significant pain as result of these, as well as his musculoskeletal debilities in general Infectious disease is on board for management White count is normal, afebrile We will continue with current treatment plan (2) Chronic pain Current Visit: Yes Status: Acute Assessment and Plan: Patient dealing with chronic pain on very high-dose opiate pain management Currently receiving 45 mg extended release morphine every 8 hours with 10 mg oxycodone immediate release for breakthrough pain He did have pain management consult evaluation who recommended this from his previous pain management regimen Currently this seems to be nearly optimal for him with the exception of the last hour before his dose is due Additionally, he says that his breakthrough dose does not seem to be very helpful for him I will increase his breakthrough oxycodone to 15 mg Continue to monitor (3) Stage 4 decubitus ulcer Current Visit: Yes Status: Acute Assessment and Plan: Stage IV decubitus ulcer Osteomyelitis with MDRO organisms Management as above per ID (4) Severe protein-calorie malnutrition Current Visit: Yes Status: Acute Assessment and Plan: Status post PEG placement yesterday by surgery Consult to nutrition for tube feed management (5) Suprapubic catheter Current Visit: No Status: Chronic Assessment and Plan: Chronic suprapubic catheter in place due to neurogenic bladder (6) Dysphagia Current Visit: Yes Status: Chronic Assessment and Plan: Patient has difficulty with swallowing and has had PEG tube placed - Time Spent with Patient Total time spent is greater than 50% in coordination of care (as documented) at patient's floor/unit and/or counseling patient: Internal Medicine: Result - Labs CBC & Chem 7: 07/23/19 03:25 07/23/19 03:25 Consult Discharge Plan - Plan Referrals: Judd Bautista MD [Primary Care Provider] - <Ancelmo Lamb - Last Filed: 07/24/19 16:55> Hospitalist Progress Note - Encounter Date of Encounter: 07/24/19 - Exam Vitals: Temp Pulse Resp BP Pulse Ox 98.5 F 55 16 121/78 98 07/24/19 12:55 07/24/19 12:55 07/24/19 12:55 07/24/19 12:55 07/24/19 04:00 - Assessment and Plan (1) Osteomyelitis Current Visit: Yes Status: Acute (2) Stage 4 decubitus ulcer Current Visit: Yes Status: Acute (3) Severe protein-calorie malnutrition Current Visit: Yes Status: Chronic (4) Chronic pain Current Visit: Yes Status: Acute (5) Hypotension Current Visit: Yes Status: Chronic (6) Quadriplegia Current Visit: Yes Status: Chronic - Time Spent with Patient Total time spent is greater than 50% in coordination of care (as documented) at patient's floor/unit and/or counseling patient: Internal Medicine: Result - Labs CBC & Chem 7: 07/23/19 03:25 07/23/19 03:25 - Attending Attestation I examined this patient and my medical decision-making was reviewed with the Resident Physician on 07/24/19. I agree with the documented findings, disposition and treatment plan as described except to the extent set forth below. Mr Alvarado is currently admitted for sacral decub infection and new PEG. He remains moderate to high risk due to potential for worsening clinical status. Mr Alvarado is doing OK. No fever or chills. No GI issues. Wants to start tube feeds. Exam Alert. Comfortable NC EOMI. Mucus membranes dry Neck supple Not tachycardic Occ rhonchi Abd soft No edema Plan Start tube feeds Continue abx per ID service Adjust pain meds. Further diagnoses and plan as above. <Bobby Uribe - Last Filed: 07/24/19 15:54> (1) Osteomyelitis Qualifiers: Osteomyelitis type: unspecified type Osteomyelitis location: femur Laterality: left Qualified Code(s): M86.9 - Osteomyelitis, unspecified (2) Chronic pain Qualifiers: Chronic pain type: other chronic pain Qualified Code(s): G89.29 - Other chronic pain (3) Stage 4 decubitus ulcer Qualifiers: Pressure injury location: contiguous region involving buttock and hip Laterality: left Qualified Code(s): L89.44 - Pressure ulcer of contiguous site of back, buttock and hip, stage 4 (6) Dysphagia Qualifiers: Dysphagia type: oropharyngeal phase Qualified Code(s): R13.12 - Dysphagia, oropharyngeal phase <Ancelmo Lamb - Last Filed: 07/24/19 16:55> (1) Osteomyelitis Qualifiers: Osteomyelitis type: other acute Osteomyelitis location: femur Laterality: left Qualified Code(s): M86.152 - Other acute osteomyelitis, left femur (2) Stage 4 decubitus ulcer Qualifiers: Pressure injury location: contiguous region involving buttock and hip Laterality: left Qualified Code(s): L89.44 - Pressure ulcer of contiguous site of back, buttock and hip, stage 4 (4) Chronic pain Qualifiers: Chronic pain type: other chronic pain Qualified Code(s): G89.29 - Other chronic pain (5) Hypotension Qualifiers: Hypotension type: other hypotension type Qualified Code(s): I95.89 - Other hypotension
[2019-07-24] MEDS: ALPRAZolam 0.5 MG TABLET PO SCH ×2 (15:53→21:54)
[2019-07-25] MEDS: Morphine Sulfate ER (12 HR) 15 MG TABLET.ER PO SCH ×4 (00:04→23:16)
[2019-07-25 05:58] LABS: Hematocrit 35.4 % (37.5-50.1); Hemoglobin 10.8 g/dL (12.9-16.9); Mean Corpuscular HGB Conc 30.5 g/dL (31.6-35.5); Mean Corpuscular Volume 94.9 fL (83.0-100.0); Mean Platelet Volume 9.6 fL (9.4-12.4); Platelet Count 220 K/mcL (140-400); Red Blood Count 3.73 M/mcL (4.19-5.50); Red Cell Distribution Width 17.1 % (11.5-14.5); White Blood Count 5.7 K/mcL (4.3-11.1)
[2019-07-25] MEDS: *HR* Heparin 5,000 UNIT/ML VIAL SQ SCH ×3 (06:05→22:02)
[2019-07-25 06:18] LABS: BUN/Creatinine Ratio 26 (6-26); Blood Urea Nitrogen 15 mg/dL (6-20); Calcium 10.1 mg/dL (8.6-10.3); Carbon Dioxide 29 mEq/L (23-29); Chloride 105 mEq/L (98-107); Glucose 135 mg/dL (70-105); Osmolality,Calculated 277 (280-300); Potassium 3.6 mEq/L (3.5-5.1); Sodium 132 mEq/L (136-145); eGFR For African Americans > 60 (> 60); eGFR For Non-African Americans > 60 (> 60)
--- NOTE | 2019-07-25 06:24 | Event Note ---
Date of Encounter: 07/25/19 Time of Encounter: 06:13 Alerted by patient's nurse MONISHA Downing that patient's PICC line will not flush at all. Nurse had attempted to start patient's ordered IV antibiotics which will not go through. Lab called to do peripheral draw for morning labs. PICC TEAM NEEDS CALLED IN TO PLACE NEW PICC LINE IN ORDER FOR PATIENT TO CONTINUE ABX THERAPY. Nurse instructed to continue monitoring this pt. closely and alert me immediately of any adverse or new changes.
[2019-07-25] MEDS ORDERED: *HR* Alteplase (Cathflo) 2 MG VIAL IVP ONE (07:45)
[2019-07-25] MEDS: Vancomycin 500 MG in 0.9 % Sodium Chloride Mini Bag 100 ML IVPB SCH ×2 (07:53→14:43)
[2019-07-25] MEDS: ALPRAZolam 0.5 MG TABLET PO SCH ×3 (09:02→22:04)
[2019-07-25] MEDS: Gabapentin 400 MG CAPSULE PO SCH ×3 (09:03→22:03)
[2019-07-25] MEDS: Sucralfate 1 GM TABLET PO SCH ×2 (09:03→22:03)
[2019-07-25] MEDS: Sennosides/Docusate Sodium TABLET PO SCH (09:03)
[2019-07-25] MEDS: Colistin (Colistimethate) 150 MG in 0.9 % Sodium Chloride 50 ML IVPB SCH ×2 (10:31→23:02)
[2019-07-25] MEDS: Gentamicin Oint 15 GM TUBE TP SCH (11:28)
[2019-07-25] MEDS: Cefepime HCl 2,000 MG in 0.9 % Sodium Chloride Mini Bag 100 ML IVPB SCH ×2 (11:29→22:02)
[2019-07-25] MEDS: *HR* OxyCODONE Immed Rel 5 MG TABLET PO PRN ×2 (13:40→22:04)
[2019-07-25] MEDS: Methocarbamol 500 MG TABLET PO PRN ×2 (13:42→23:16)
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
[2019-07-25] MEDS ORDERED: Artificial Tears SOLN 15 ML BOTTLE BOTH EYES PRN (14:35)
[2019-07-25] MEDS: Ketorolac 30 MG/ML VIAL IVP PRN (14:56)
[2019-07-25] MEDS ORDERED: AMINO ACIDS PO SCH (21:00)
[2019-07-25] MEDS ORDERED: PROTEIN HYDROLYS PO SCH (21:00)
[2019-07-25] MEDS ORDERED: [UNRECOGNIZED DRUG - OTHER] PO SCH (21:00)
[2019-07-25] MEDS: Budesonide Neb 0.5 MG/2 ML IH SCH ×2 (22:11→22:12)
[2019-07-26] MEDS: Ketorolac 30 MG/ML VIAL IVP PRN (02:31)
[2019-07-26] MEDS: Vancomycin 500 MG in 0.9 % Sodium Chloride Mini Bag 100 ML IVPB SCH ×2 (02:32→15:58)
[2019-07-26] MEDS: *HR* Heparin 5,000 UNIT/ML VIAL SQ SCH ×3 (05:05→23:43)
[2019-07-26 05:20] LABS: Hematocrit 33.8 % (37.5-50.1); Hemoglobin 10.3 g/dL (12.9-16.9); Mean Corpuscular HGB Conc 30.5 g/dL (31.6-35.5); Mean Corpuscular Hemoglobin 28.9 pg (28.0-33.3); Mean Corpuscular Volume 94.9 fL (83.0-100.0); Mean Platelet Volume 9.8 fL (9.4-12.4); Platelet Count 219 K/mcL (140-400); Red Blood Count 3.56 M/mcL (4.19-5.50); White Blood Count 5.1 K/mcL (4.3-11.1)
[2019-07-26 05:42] LABS: BUN/Creatinine Ratio 29 (6-26); Blood Urea Nitrogen 24 mg/dL (6-20); Calcium 9.5 mg/dL (8.6-10.3); Carbon Dioxide 27 mEq/L (23-29); Chloride 103 mEq/L (98-107); Glucose 100 mg/dL (70-105); Osmolality,Calculated 284 (280-300); Potassium 4.1 mEq/L (3.5-5.1); Sodium 135 mEq/L (136-145); eGFR For African Americans > 60 (> 60); eGFR For Non-African Americans > 60 (> 60)
[2019-07-26] MEDS: Sennosides/Docusate Sodium TABLET PO SCH (08:33)
[2019-07-26] MEDS: Morphine Sulfate ER (12 HR) 15 MG TABLET.ER PO SCH ×3 (08:34→23:43)
[2019-07-26] MEDS: Loratadine 10 MG TABLET PO SCH (08:35)
[2019-07-26] MEDS: ALPRAZolam 0.5 MG TABLET PO SCH ×3 (08:35→19:41)
[2019-07-26] MEDS: Sucralfate 1 GM TABLET PO SCH ×2 (08:35→19:41)
[2019-07-26] MEDS: Multivit/Ca/Min/Fe/FA 1 TAB TABLET PO SCH (08:36)
[2019-07-26] MEDS: Zinc Sulfate 220 MG CAPSULE PO SCH (08:36)
[2019-07-26] MEDS: Lactobacillus 1 EACH CAP.SPRINK PO SCH (08:36)
[2019-07-26] MEDS: Gabapentin 400 MG CAPSULE PO SCH ×3 (08:36→19:41)
[2019-07-26] MEDS: Colistin (Colistimethate) 150 MG in 0.9 % Sodium Chloride 50 ML IVPB SCH ×2 (08:37→19:44)
[2019-07-26] MEDS ORDERED: SOLIFENACIN SUCCINATE 5 MG PO SCH (09:00)
[2019-07-26] MEDS ORDERED: NON-FORMULARY MEDICATION 1 EACH EACH (Linaclotide [Linzess] 290 MCG) PO SCH (09:00)
[2019-07-26] MEDS: Budesonide Neb 0.5 MG/2 ML IH SCH ×2 (10:32→22:24)
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
[2019-07-26] MEDS: Lactulose Oral Soln 20 GM/30 ML UDC PO SCH (10:40)
[2019-07-26] MEDS: Cefepime HCl 2,000 MG in 0.9 % Sodium Chloride Mini Bag 100 ML IVPB SCH ×2 (10:41→23:43)
[2019-07-26] MEDS: MOM Conc 10 ML UD.LIQ PO SCH (10:41)
[2019-07-26] MEDS: Gentamicin Oint 15 GM TUBE TP SCH (10:43)
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
[2019-07-26] MEDS: *HR* OxyCODONE Immed Rel 5 MG TABLET PO PRN ×2 (12:22→19:41)
--- NOTE | 2019-07-26 14:47 | Physician Discharge Referral ---
ExtendedCare Referral Info Transfer To: [facility] Provider in Charge: Ancelmo Lamb DO Provider in Charge after Transfer: PCP Institutional Level of Care: Skilled - Diagnosis (1) Osteomyelitis Priority: Primary Status: Acute (2) Chronic pain Priority: Secondary Status: Acute (3) Stage 4 decubitus ulcer Priority: Secondary Status: Acute (4) Severe protein-calorie malnutrition Priority: Secondary Status: Chronic (5) Suprapubic catheter Priority: Secondary Status: Chronic (6) Dysphagia Priority: Secondary Status: Chronic Expected Duration of Placement: indefinite Prognosis: Poor Aware of Diagnosis: Patient Aware of Prognosis: Patient - Transfer Medications Prescriptions: Morphine Sulfate ER (12 HR) [MS Contin] 45 mg PO Q8HR 2 Days #18 tablet.er Prescription Printed Oxycodone HCl 15 mg PO Q8H PRN 2 Days #9 tab PRN Reason: Pain (breakthrough) Prescription Printed Home Medications: ALPRAZolam [Xanax 0.5 MG Tablet] 0.5 mg PO TID 09/07/18 [History] Baclofen [Lioresal] 20 mg PO TID 09/07/18 [History] Budesonide Neb [Pulmicort Neb] 0.5 mg IH BIDR 09/07/18 [History] Cetirizine HCl [24Hour Allergy] 10 mg PO DAILY 09/07/18 [History] Dicyclomine Hcl [Bentyl] 20 mg PO TID 09/07/18 [History] Ferrous Sulfate [Iron] 325 mg PO BID 09/07/18 [History] Ibuprofen [Motrin] 600 mg PO TID PRN 09/07/18 [History] Ipratropium/Albuterol Neb [Duoneb] 3 ml IH Q4HR PRN 09/07/18 [History] Lactobacillus Acidophilus [Acidophilus] 1 cap PO DAILY 09/07/18 [History] Multivit,Th Iron,Other Min [Thera-M] 1 tab PO DAILY 09/07/18 [History] Polyethylene Glycol 3350 [MiraLAX] 17 gm PO BID 09/07/18 [History] Potassium Chloride [K-Tab ER] 20 meq PO DAILY 09/07/18 [History] Sucralfate [Carafate] 1 gm PO BID 09/07/18 [History] Zinc Sulfate 220 mg PO DAILY 09/07/18 [History] Methocarbamol [Robaxin] 500 mg PO Q8HR PRN 04/14/19 [History] Amino Acids/Protein Hydrolys [Pro-Stat Awc Liquid] 30 ml PO BID 07/15/19 [History] Dextran 70/Hypromellose [Natural Balance Tears Eye Drop] 1 drop BOTH EYES QID PRN 07/15/19 [History] Lactulose [Enulose] 20 gm PO DAILY 07/15/19 [History] Linaclotide [Linzess] 290 mcg PO DAILY 07/15/19 [History] Magnesium Hydroxide [Milk of Magnesia] 2,400 mg PO DAILY 07/15/19 [History] Midodrine HCl 10 mg PO DAILY PRN 07/15/19 [History] Sennosides/Docusate Sodium [Senna Plus 8.6-50 mg Tablet] 2 each PO DAILY 07/15/19 [History] Solifenacin Succinate [Vesicare] 5 mg PO DAILY 07/15/19 [History] Cefepime HCl/Dextrose, Iso-Osm [Cefepime 2 gm Injection] 2 gm IV BID 42 Days #84 mls 07/19/19 [Rx] Colistin (Colistimethate Na) [Colistimethate] 150 mg IV BID 42 Days #84 vial 07/19/19 [Rx] Collagenase Oint [Santyl] 1 appl TP DAILY #1 tube 07/20/19 [Rx] Gentamicin Oint [Garamycin] 1 appl TP DAILY #1 tube 07/20/19 [Rx] Miconazole 2% cream [Marce Antifungal] 1 appl TP BID #1 tube 07/20/19 [Rx] Sodium Hypochlorite 0.25% [Dakin's (Half-Strength 0.25%)] 1 appl TP BID #1 bottle 07/20/19 [Rx] Trolamine Salicylate/Aloe Vera [Aspercreme 10%] 1 appl TP TID PRN #1 tube 07/20/19 [Rx] Gabapentin [Neurontin] 1,200 mg PO TID 07/22/19 [History] Omeprazole [PriLOSEC] 40 mg PO DAILY 07/22/19 [History] Oxybutynin Chloride [Ditropan XL] 15 mg PO BID 07/22/19 [History] Vancomycin [Vancocin] 750 mg IV BID 07/22/19 [History] Midodrine [ProAmatine] 10 mg PO 0800,1200,1700 tablet 07/26/19 [Rx] Morphine Sulfate ER (12 HR) [MS Contin] 45 mg PO Q8HR 2 Days #18 tablet.er 07/26/19 [Rx] Oxycodone HCl 15 mg PO Q8H PRN 2 Days #9 tab 07/26/19 [Rx] Allergies/Adverse Reactions: Allergy/AdvReac Type Severity Reaction Status Date / Time honey Allergy See Verified 07/21/19 23:41 Comments - Respiratory Orders Smoking Cessation: Smoking cessation has been advised. For more information, call the [place] Tobacco Quit Line at 8-188-MRKW-NOW. - Lab Orders Lab Orders: CBC (1 week), Other (include drug levels w/frequency) (BMP 1 week) - Ancillary Orders May use pressure relief devices daily prn - Advance Directives Code Status: Full Code - Mobility Orders Bedrest - Rehabiliation Orders Rehab Potential: Poor Rehab Orders: ROM Exercises, Evaluation for Physical Therapy, Evaluation for Occupational Therapy - Diet Orders Cardiac House Supplement per Dietary: Mina BID Tube Feedings (type/amount/rate): Continue to increase Osmolite 1.2 as ordered to 70 mL/hr goal Flush Tube (type/amount/frequency): Free water 120mL q6h CERTIFICATION: I certify that the transfer of the above named patient to an Extended Care Facility is necessary for the continuing treatment of the diagnosis listed. The above information is true and accurate reflection of patient's current condition. Confidential - Redisclosure prohibited without a patient's written consent.
[2019-07-27] MEDS: Vancomycin 500 MG in 0.9 % Sodium Chloride Mini Bag 100 ML IVPB SCH (02:35)
[2019-07-27 03:13] LABS: Hematocrit 34.7 % (37.5-50.1); Hemoglobin 10.6 g/dL (12.9-16.9); Mean Corpuscular HGB Conc 30.5 g/dL (31.6-35.5); Mean Corpuscular Hemoglobin 28.8 pg (28.0-33.3); Mean Corpuscular Volume 94.3 fL (83.0-100.0); Mean Platelet Volume 9.6 fL (9.4-12.4); Platelet Count 240 K/mcL (140-400); Red Blood Count 3.68 M/mcL (4.19-5.50); Red Cell Distribution Width 17.1 % (11.5-14.5); White Blood Count 6.3 K/mcL (4.3-11.1)
[2019-07-27 03:39] LABS: BUN/Creatinine Ratio 28 (6-26); Blood Urea Nitrogen 21 mg/dL (6-20); Calcium 9.5 mg/dL (8.6-10.3); Carbon Dioxide 28 mEq/L (23-29); Chloride 101 mEq/L (98-107); Glucose 132 mg/dL (70-105); Osmolality,Calculated 289 (280-300); Potassium 4.1 mEq/L (3.5-5.1); Sodium 137 mEq/L (136-145); eGFR For African Americans > 60 (> 60); eGFR For Non-African Americans > 60 (> 60)
[2019-07-27] MEDS: Budesonide Neb 0.5 MG/2 ML IH SCH (07:29)
[2019-07-27] MEDS: *HR* Heparin 5,000 UNIT/ML VIAL SQ SCH ×2 (07:52→12:14)
[2019-07-27 08:15] VITALS: BP 103/69
[2019-07-27] MEDS: Multivit/Ca/Min/Fe/FA 1 TAB TABLET PO SCH (09:32)
[2019-07-27] MEDS: Gabapentin 400 MG CAPSULE PO SCH (09:32)
[2019-07-27] MEDS: Lactobacillus 1 EACH CAP.SPRINK PO SCH (09:32)
[2019-07-27] MEDS: Sucralfate 1 GM TABLET PO SCH (09:32)
[2019-07-27] MEDS: Morphine Sulfate ER (12 HR) 15 MG TABLET.ER PO SCH (09:32)
[2019-07-27] MEDS: ALPRAZolam 0.5 MG TABLET PO SCH (09:32)
[2019-07-27] MEDS: Zinc Sulfate 220 MG CAPSULE PO SCH (09:32)
[2019-07-27] MEDS: Loratadine 10 MG TABLET PO SCH (09:33)
[2019-07-27] MEDS: Cefepime HCl 2,000 MG in 0.9 % Sodium Chloride Mini Bag 100 ML IVPB SCH (09:33)
[2019-07-27] MEDS: Sennosides/Docusate Sodium TABLET PO SCH (09:33)
[2019-07-27] MEDS: MOM Conc 10 ML UD.LIQ PO SCH (09:34)
[2019-07-27] MEDS: Gentamicin Oint 15 GM TUBE TP SCH (09:34)
[2019-07-27] MEDS: Lactulose Oral Soln 20 GM/30 ML UDC PO SCH (09:34)
[2019-07-27] MEDS: Colistin (Colistimethate) 150 MG in 0.9 % Sodium Chloride 50 ML IVPB SCH (09:44)
[2019-07-27] MEDS: *HR* OxyCODONE Immed Rel 5 MG TABLET PO PRN (13:29)
[2019-07-27] MEDS ORDERED: Aminoglycoside Consult 1 EACH MC ONE (13:36)
== END 2019-07-27 13:37 | DRG 344 ==
LOC: EMEROOARM 09:01 → 3BNU 09:01 → 2NENU 07-23 13:57 → SUATTDRO 07-23 14:08
PROVIDERS: ADMIT Pharmacist; ATTEND Internal Medicine

== ENCOUNTER 2019-08-26 19:25 | Inpatient (IN) ==
[2019-08-26] MEDS ORDERED: 0.9 % Sodium Chloride 1,000 ML IVC ONE (19:52)
[2019-08-26] MEDS ORDERED: Morphine Sulfate 2 MG/ML SYRINGE IVP ONE ×2 (19:55→22:10)
[2019-08-26 20:43] LABS: Basophils % 0.3 %; Eosinophils # 0.7 K/mcL (0.0-0.6); Eosinophils % 9.1 %; Hematocrit 33.7 % (37.5-50.1); Hemoglobin 10.8 g/dL (12.9-16.9); Immature Granulocytes % 0.3 % (0-4); Lymphocytes # 1.5 K/mcL (0.6-4.6); Lymphocytes % 20.6 %; Mean Corpuscular Hemoglobin 29.6 pg (28.0-33.3); Mean Corpuscular Volume 92.3 fL (83.0-100.0); Mean Platelet Volume 8.9 fL (9.4-12.4); Monocytes # 0.6 K/mcL (0.0-1.3); Monocytes % 7.6 %; Neutrophils # 4.6 K/mcL (1.6-8.9); Platelet Count 274 K/mcL (140-400); Red Blood Count 3.65 M/mcL (4.19-5.50); Red Cell Distribution Width 15.9 % (11.5-14.5); Segmented Neutrophils % 62.1 %; White Blood Count 7.4 K/mcL (4.3-11.1)
[2019-08-26 20:50] LABS: BUN/Creatinine Ratio 38 (6-26); Blood Urea Nitrogen 19 mg/dL (6-20); Calcium 9.1 mg/dL (8.6-10.3); Carbon Dioxide 32 mEq/L (23-29); Chloride 96 mEq/L (98-107); Glucose 165 mg/dL (70-105); Osmolality,Calculated 288 (280-300); Potassium 3.5 mEq/L (3.5-5.1); Sodium 136 mEq/L (136-145); eGFR For African Americans > 60 (> 60); eGFR For Non-African Americans > 60 (> 60)
[2019-08-26 21:04] LABS: Bilirubin,Urine Negative (Negative); Blood,Urine Negative (Negative); Clarity,Urine Cloudy (Clear); Color,Urine Yellow (Yellow); Glucose,Urine (UA) Normal (Normal); Ketones,Urine Negative (Negative); Leukocyte Esterase,Urine Large (Negative); Nitrite,Urine Positive (Negative); PH,Urine 6.5 pH Units (5.0-8.0); Protein,Urine 30 mg/dL (Neg-Trace); Specific Gravity,Urine 1.021 (1.010-1.025); Urobilinogen,Urine Normal (Normal)
[2019-08-26 21:06] LABS: Bacteria,Urine Moderate per hpf (None-Few); Hyaline Casts,Urine None Seen per lpf (None-Few); Squamous Epithelial Cell,Urine None Seen per lpf (None-Few); WBC,Urine 30-50 per hpf (0-3)
[2019-08-26] MEDS ORDERED: Piperacillin/Tazobactam 3.375 GM in Water for inj. (sterile) 20 ML IVP ONE (21:43)
[2019-08-26] MEDS ORDERED: Piperacillin/Tazobactam 3.375 GM in 0.9 % Sodium Chloride Mini Bag 100 ML IVPB ONE (21:49)
[2019-08-27] MEDS ORDERED: Naloxone 0.4 MG/ML INJ IVP PRN (00:07)
[2019-08-27] MEDS ORDERED: 0.9 % Sodium Chloride 1,000 ML IVC ONE (00:11)
[2019-08-27 01:54] LABS: Hematocrit 29.4 % (37.5-50.1); Hemoglobin 9.4 g/dL (12.9-16.9); Mean Corpuscular Hemoglobin 29.7 pg (28.0-33.3); Mean Corpuscular Volume 92.7 fL (83.0-100.0); Mean Platelet Volume 8.6 fL (9.4-12.4); Platelet Count 240 K/mcL (140-400); Red Blood Count 3.17 M/mcL (4.19-5.50); Red Cell Distribution Width 15.9 % (11.5-14.5); White Blood Count 6.7 K/mcL (4.3-11.1)
[2019-08-27 02:16] LABS: Alanine Aminotransferase 10 Units/L (7-52); Albumin/Globulin Ratio 0.7 (1.1-2.2); Alkaline Phosphatase 90 Units/L (34-104); Aspartate Amino Transferase 8 Units/L (13-39); BUN/Creatinine Ratio 31 (6-26); Bilirubin,Total 0.2 mg/dL (0.3-1.0); Blood Urea Nitrogen 17 mg/dL (6-20); Calcium 8.7 mg/dL (8.6-10.3); Carbon Dioxide 31 mEq/L (23-29); Chloride 102 mEq/L (98-107); Globulin 4.3 g/dL (2.4-3.5); Glucose 93 mg/dL (70-105); Magnesium 1.9 mg/dL (1.6-2.6); Osmolality,Calculated 285 (280-300); Phosphorous 4.1 mg/dL (2.7-4.5); Potassium 3.8 mEq/L (3.5-5.1); Sodium 137 mEq/L (136-145); Total Protein 7.3 g/dL (6.4-8.9); eGFR For African Americans > 60 (> 60); eGFR For Non-African Americans > 60 (> 60)
[2019-08-27] MEDS ORDERED: Acetaminophen 325 MG TABLET PO PRN (04:00)
[2019-08-27] MEDS ORDERED: *HR* HYDROcodone/Acet 5/325 mg TABLET PO PRN (04:00)
[2019-08-27] MEDS ORDERED: *HR* OxyCODONE Immed Rel 5 MG TABLET PO PRN ×2 (04:00→07:51)
[2019-08-27] MEDS: Cefepime HCl 2,000 MG in Water for inj. (sterile) 20 ML IVP SCH ×3 (05:09→21:29)
[2019-08-27] MEDS: *HR* Heparin 5,000 UNIT/ML VIAL SQ SCH ×2 (05:10→18:04)
[2019-08-27] MEDS ORDERED: Ipratropium/Albuterol Neb 3 ML IH ONE (07:05)
[2019-08-27] MEDS ORDERED: Methocarbamol 500 MG TABLET GTUBE PRN (07:51)
[2019-08-27] MEDS ORDERED: Piperacillin/Tazobactam 3.375 GM in 0.9 % Sodium Chloride Mini Bag 100 ML IVPB SCH (08:00)
[2019-08-27] MEDS ORDERED: Potassium Chloride Elixir 20 MEQ/15 ML UDC PO SCH (09:00)
[2019-08-27] MEDS ORDERED: Budesonide Neb 0.5 MG/2 ML IH ONE (09:36)
[2019-08-27] MEDS: Budesonide Neb 0.5 MG/2 ML IH SCH ×2 (09:42→22:13)
[2019-08-27] MEDS: MOM Conc 10 ML UD.LIQ GTUBE SCH (11:43)
[2019-08-27] MEDS: Lactulose Oral Soln 20 GM/30 ML UDC GTUBE SCH (11:43)
[2019-08-27] MEDS: Ferrous Sulfate Oral Soln 300 MG/5 ML UDC GTUBE SCH (11:46)
[2019-08-27] MEDS: Loratadine 10 MG TABLET GTUBE SCH (11:47)
[2019-08-27] MEDS: *HR* OxyCODONE Immed Rel 5 MG TABLET GTUBE PRN ×2 (11:47→18:07)
[2019-08-27] MEDS: Baclofen 10 MG TABLET GTUBE SCH ×3 (11:47→21:28)
[2019-08-27] MEDS: Sennosides/Docusate Sodium TABLET GTUBE SCH (11:48)
[2019-08-27] MEDS: Gabapentin 400 MG CAPSULE GTUBE SCH ×3 (11:48→21:28)
[2019-08-27] MEDS: ALPRAZolam 0.5 MG TABLET GTUBE SCH ×3 (11:48→21:29)
[2019-08-27] MEDS: Potassium Chloride Elixir 20 MEQ/15 ML UDC GTUBE SCH (11:50)
[2019-08-27] MEDS: Multivitamin Liquid 15 ML UDC GTUBE SCH (14:41)
[2019-08-27] MEDS ORDERED: Aminoglycoside Consult 1 EACH MC ONE (18:02)
[2019-08-28] MEDS: Cefepime HCl 2,000 MG in Water for inj. (sterile) 20 ML IVP SCH (05:48)
[2019-08-28] MEDS: *HR* Heparin 5,000 UNIT/ML VIAL SQ SCH ×2 (05:48→16:58)
[2019-08-28 06:58] LABS: Hemoglobin 9.7 g/dL (12.9-16.9); Mean Corpuscular HGB Conc 30.3 g/dL (31.6-35.5); Mean Corpuscular Hemoglobin 29.5 pg (28.0-33.3); Mean Corpuscular Volume 97.3 fL (83.0-100.0); Mean Platelet Volume 8.7 fL (9.4-12.4); Platelet Count 231 K/mcL (140-400); Red Blood Count 3.29 M/mcL (4.19-5.50); Red Cell Distribution Width 15.9 % (11.5-14.5)
[2019-08-28 07:05] LABS: BUN/Creatinine Ratio 31 (6-26); Blood Urea Nitrogen 12 mg/dL (6-20); Calcium 8.8 mg/dL (8.6-10.3); Carbon Dioxide 29 mEq/L (23-29); Chloride 104 mEq/L (98-107); Glucose 134 mg/dL (70-105); Magnesium 2.1 mg/dL (1.6-2.6); Osmolality,Calculated 290 (280-300); Phosphorous 2.5 mg/dL (2.7-4.5); Potassium 3.7 mEq/L (3.5-5.1); Sodium 139 mEq/L (136-145); eGFR For African Americans > 60 (> 60); eGFR For Non-African Americans > 60 (> 60)
[2019-08-28] MEDS: 0.9 % Sodium Chloride 500 ML IVC PRN (08:24)
[2019-08-28] MEDS: Sennosides/Docusate Sodium TABLET GTUBE SCH (08:30)
[2019-08-28] MEDS: Multivitamin Liquid 15 ML UDC GTUBE SCH (08:30)
[2019-08-28] MEDS: Lactulose Oral Soln 20 GM/30 ML UDC GTUBE SCH (08:30)
[2019-08-28] MEDS: MOM Conc 10 ML UD.LIQ GTUBE SCH (08:30)
[2019-08-28] MEDS: Gabapentin 400 MG CAPSULE GTUBE SCH ×3 (08:31→21:23)
[2019-08-28] MEDS: Baclofen 10 MG TABLET GTUBE SCH ×3 (08:31→21:23)
[2019-08-28] MEDS: Loratadine 10 MG TABLET GTUBE SCH (08:31)
[2019-08-28] MEDS: Potassium Chloride Elixir 20 MEQ/15 ML UDC GTUBE SCH (08:32)
[2019-08-28] MEDS: ALPRAZolam 0.5 MG TABLET GTUBE SCH ×3 (08:33→21:23)
[2019-08-28] MEDS: Nicotine 21 MG PATCH.TD24 TD SCH (10:22)
[2019-08-28] MEDS: Ringers Solution, Lactated 1,000 ML IVC SCH ×2 (10:23→21:24)
[2019-08-28] MEDS: Budesonide Neb 0.5 MG/2 ML IH SCH ×2 (11:09→22:01)
[2019-08-28] MEDS: Ertapenem 1,000 MG in 0.9 % Sodium Chloride Mini Bag 100 ML IVPB SCH (14:06)
[2019-08-28] MEDS: *HR* OxyCODONE Immed Rel 5 MG TABLET GTUBE PRN (17:11)
[2019-08-29] MEDS: *HR* OxyCODONE Immed Rel 5 MG TABLET GTUBE PRN (01:45)
[2019-08-29] MEDS: *HR* Heparin 5,000 UNIT/ML VIAL SQ SCH ×2 (05:31→17:51)
[2019-08-29 07:58] LABS: Hematocrit 31.6 % (37.5-50.1); Mean Corpuscular HGB Conc 31.6 g/dL (31.6-35.5); Mean Corpuscular Hemoglobin 29.4 pg (28.0-33.3); Mean Corpuscular Volume 92.9 fL (83.0-100.0); Mean Platelet Volume 8.7 fL (9.4-12.4); Platelet Count 231 K/mcL (140-400); Red Cell Distribution Width 15.8 % (11.5-14.5); White Blood Count 4.5 K/mcL (4.3-11.1)
[2019-08-29 08:04] LABS: Magnesium 2.1 mg/dL (1.6-2.6); Phosphorous 2.7 mg/dL (2.7-4.5)
[2019-08-29 08:06] LABS: BUN/Creatinine Ratio 45 (6-26); Blood Urea Nitrogen 15 mg/dL (6-20); Calcium 9.3 mg/dL (8.6-10.3); Carbon Dioxide 34 mEq/L (23-29); Chloride 99 mEq/L (98-107); Glucose 120 mg/dL (70-105); Osmolality,Calculated 288 (280-300); Sodium 138 mEq/L (136-145); eGFR For African Americans > 60 (> 60); eGFR For Non-African Americans > 60 (> 60)
[2019-08-29] MEDS: Budesonide Neb 0.5 MG/2 ML IH SCH ×2 (08:25→22:13)
[2019-08-29] MEDS ORDERED: *HR* HYDROmorphone (PF) 1 MG/ML SYRINGE IVP ONE (08:44)
[2019-08-29] MEDS: Ferrous Sulfate Oral Soln 300 MG/5 ML UDC GTUBE SCH (09:28)
[2019-08-29] MEDS: Potassium Chloride Elixir 20 MEQ/15 ML UDC GTUBE SCH (09:29)
[2019-08-29] MEDS: Ertapenem 1,000 MG in 0.9 % Sodium Chloride Mini Bag 100 ML IVPB SCH (09:29)
[2019-08-29] MEDS: ALPRAZolam 0.5 MG TABLET GTUBE SCH ×3 (09:29→21:46)
[2019-08-29] MEDS: MOM Conc 10 ML UD.LIQ GTUBE SCH (09:29)
[2019-08-29] MEDS: Sennosides/Docusate Sodium TABLET GTUBE SCH (09:29)
[2019-08-29] MEDS: Baclofen 10 MG TABLET GTUBE SCH ×3 (09:29→21:47)
[2019-08-29] MEDS: Lactulose Oral Soln 20 GM/30 ML UDC GTUBE SCH (09:29)
[2019-08-29] MEDS: Multivitamin Liquid 15 ML UDC GTUBE SCH (09:30)
[2019-08-29] MEDS: Nicotine 21 MG PATCH.TD24 TD SCH (09:30)
[2019-08-29] MEDS: Loratadine 10 MG TABLET GTUBE SCH (09:30)
[2019-08-29] MEDS: Gabapentin 400 MG CAPSULE GTUBE SCH ×3 (09:30→21:46)
[2019-08-29] MEDS ORDERED: Ketorolac 30 MG/ML VIAL IVP ONE (18:04)
[2019-08-29] MEDS ORDERED: Lidocaine 4% CREAM (LMX) 5 GM TP PRN (18:54)
[2019-08-30] MEDS: *HR* OxyCODONE Immed Rel 5 MG TABLET GTUBE PRN ×4 (01:19→22:32)
[2019-08-30] MEDS ORDERED: Acetaminophen IV 1,000 MG/100 ML INFUS..BTL IVPB ONE (03:27)
[2019-08-30] MEDS: *HR* Heparin 5,000 UNIT/ML VIAL SQ SCH ×2 (06:29→17:51)
[2019-08-30] MEDS: 0.9 % Sodium Chloride 500 ML IVC PRN (07:31)
[2019-08-30] MEDS: Budesonide Neb 0.5 MG/2 ML IH SCH ×2 (07:33→23:03)
[2019-08-30] MEDS: Ertapenem 1,000 MG in 0.9 % Sodium Chloride Mini Bag 100 ML IVPB SCH (08:34)
[2019-08-30] MEDS: Multivitamin Liquid 15 ML UDC GTUBE SCH (08:38)
[2019-08-30] MEDS: MOM Conc 10 ML UD.LIQ GTUBE SCH (08:38)
[2019-08-30] MEDS: Lactulose Oral Soln 20 GM/30 ML UDC GTUBE SCH (08:38)
[2019-08-30] MEDS: Nicotine 21 MG PATCH.TD24 TD SCH (08:38)
[2019-08-30] MEDS: Baclofen 10 MG TABLET GTUBE SCH ×3 (08:39→22:30)
[2019-08-30] MEDS: ALPRAZolam 0.5 MG TABLET GTUBE SCH ×3 (08:39→22:29)
[2019-08-30] MEDS: Gabapentin 400 MG CAPSULE GTUBE SCH ×3 (08:39→22:29)
[2019-08-30] MEDS: Sennosides/Docusate Sodium TABLET GTUBE SCH (08:39)
[2019-08-30] MEDS: Potassium Chloride Elixir 20 MEQ/15 ML UDC GTUBE SCH (08:39)
[2019-08-30] MEDS: Loratadine 10 MG TABLET GTUBE SCH (08:40)
[2019-08-31] MEDS: *HR* Heparin 5,000 UNIT/ML VIAL SQ SCH (05:45)
[2019-08-31] MEDS ORDERED: Ringers Solution, Lactated 1,000 ML IVC SCH (07:45)
[2019-08-31] MEDS: ALPRAZolam 0.5 MG TABLET GTUBE SCH ×2 (07:54→17:50)
[2019-08-31] MEDS: Loratadine 10 MG TABLET GTUBE SCH (07:54)
[2019-08-31] MEDS: Gabapentin 400 MG CAPSULE GTUBE SCH ×2 (07:54→17:50)
[2019-08-31] MEDS: Baclofen 10 MG TABLET GTUBE SCH ×2 (07:54→17:50)
[2019-08-31] MEDS: Sennosides/Docusate Sodium TABLET GTUBE SCH (07:55)
[2019-08-31] MEDS: Nicotine 21 MG PATCH.TD24 TD SCH (08:00)
[2019-08-31] MEDS: Ertapenem 1,000 MG in 0.9 % Sodium Chloride Mini Bag 100 ML IVPB SCH (08:13)
[2019-08-31] MEDS: Multivitamin Liquid 15 ML UDC GTUBE SCH (08:19)
[2019-08-31] MEDS: Ferrous Sulfate Oral Soln 300 MG/5 ML UDC GTUBE SCH (08:19)
[2019-08-31] MEDS: Lactulose Oral Soln 20 GM/30 ML UDC GTUBE SCH (08:20)
[2019-08-31] MEDS: Potassium Chloride Elixir 20 MEQ/15 ML UDC GTUBE SCH (08:20)
[2019-08-31] MEDS: MOM Conc 10 ML UD.LIQ GTUBE SCH (08:20)
[2019-08-31 10:15] LABS: Hematocrit 33.5 % (37.5-50.1); Hemoglobin 10.6 g/dL (12.9-16.9); Mean Corpuscular HGB Conc 31.6 g/dL (31.6-35.5); Mean Corpuscular Hemoglobin 29.9 pg (28.0-33.3); Mean Corpuscular Volume 94.4 fL (83.0-100.0); Mean Platelet Volume 8.7 fL (9.4-12.4); Platelet Count 253 K/mcL (140-400); Red Blood Count 3.55 M/mcL (4.19-5.50); Red Cell Distribution Width 15.5 % (11.5-14.5); White Blood Count 6.2 K/mcL (4.3-11.1)
[2019-08-31 10:31] LABS: BUN/Creatinine Ratio 31 (6-26); Blood Urea Nitrogen 13 mg/dL (6-20); Calcium 9.3 mg/dL (8.6-10.3); Carbon Dioxide 32 mEq/L (23-29); Chloride 96 mEq/L (98-107); Glucose 99 mg/dL (70-105); Osmolality,Calculated 280 (280-300); Potassium 4.4 mEq/L (3.5-5.1); Sodium 135 mEq/L (136-145); eGFR For African Americans > 60 (> 60); eGFR For Non-African Americans > 60 (> 60)
[2019-08-31] MEDS: Budesonide Neb 0.5 MG/2 ML IH SCH (11:41)
[2019-08-31 11:46] VITALS: BP 132/86
== END 2019-08-31 18:03 | DRG 380 ==
LOC: EMEROOARM 19:25 → 3ANU 19:25 → SUATTDRO 22:13 → 3ANU 22:51
PROVIDERS: ADMIT Internal Medicine; ATTEND Internal Medicine